=== PATIENT | female | born 1960 | race Caucasian/White ===

== ENCOUNTER 2020-01-03 14:23 | Outpatient (CLI) | payer BC, SELFPAY ==
--- NOTE | 2020-01-03 14:31 | XRR_ITS ---
PROCEDURE INFORMATION: Exam: XR Lumbosacral Spine, 2 or 3 Views Exam date and time: 01/03/2020 2:46 PM Age: 59 years old Clinical indication: Low back pain; Additional info: Lumbar back pain TECHNIQUE: Imaging protocol: XR of the lumbosacral spine, 3 views. Other technique: AP, lateral and spot lateral views of the lumbar spine are submitted. COMPARISON: CR Lumbar Spine 5 views [id number] 06/21/2015 11:30 AM FINDINGS: Vertebrae: Mild anterior L2-L3 and L4-L5 vertebral body marginal osteophytes. Left lateral L4-L5 and L3-L4 vertebral body marginal osteophytes. Soft tissues: Normal. XR/XR lumbar spine 2-3V* [id number] IMPRESSION: No acute lumbar spinal bony abnormality identified.
== END 2020-01-03 14:24 | disposition home or self-care (01) ==
LOC: RAD 14:26
PROVIDERS: Family Provider Family Medicine; PCP Family Medicine; Visit Provider Family Medicine
DX: M54.5 Low back pain (principal)
CPT/HCPCS: 72100

== ENCOUNTER → 2020-04-15 12:42 | Outpatient (BNVA) | payer BC, SELFPAY | PROVIDERS: Family Provider Family Medicine; PCP Family Medicine; Visit Provider Specialist | DX: R51 Headache (principal); M79.7 Fibromyalgia | CPT/HCPCS: 99213 ==

== ENCOUNTER 2021-04-09 13:45 | Outpatient (CLI) | payer OTHER, SELFPAY ==
--- NOTE | 2021-04-09 14:01 | XR_ITS ---
WS: [id number] Thoracic spine, AP and lateral views, 04/09/2021 Clinical Data: THORACIC REGION BACK PAIN Comparison: None. Findings: No compression fractures are seen. The disc heights are normal. The paravertebral regions are normal. XR/XR thoracic spine 3V* [id number] Impression: Negative thoracic spine.
--- NOTE | 2021-04-09 14:01 | XR_ITS ---
WS: [id number] Cervical spine, AP, odontoid, both obliques, lateral with flexion, extension and neutral position, 04/09/2021 Clinical Data: R CERVICAL RADICULOPATHY Comparison: Cervical spine, 11/17/2016. Findings: No compression fractures are seen. There is degenerative disc narrowing at C4-C5, C5-C6 and C6-C7. There is no prevertebral soft tissue swelling. The odontoid is unremarkable. The oblique film s show left foraminal narrowing at C6-C7. On flexion and extension there is no limitation of motion o r subluxation. The soft tissues of the neck and the lung apices are normal. XR/XR cervical spine min 6V [id number] Impression: 1. Mild foraminal encroachment on the left at C6-C7. 2. Degenerative disc narrowing at C4-C5 and C5-C6 and C6-C7. 3. Negative for limitation of motion or subluxation on flexion or extension.
--- NOTE | 2021-04-09 14:01 | XR_ITS ---
WS: [id number] Lumbar spine, 3 views, 04/09/2021. Clinical Data: LUMBAR BACK PAIN Comparison: Lumbar spine, 01/03/2020. Findings: No compression fractures or subluxation is seen. No disc space narrowing is seen. The transverse proc esses and SI joints are normal. There are small osteophytes from L1 through L5. XR/XR lumbar spine 2-3V* [id number] Impression: Minimal osteophytes from L1 through L5.
== END 2021-04-09 13:46 | disposition home or self-care (01) ==
LOC: RAD 13:51
PROVIDERS: PCP Family Medicine; Visit Provider Family Medicine
DX: M54.12 Radiculopathy, cervical region (principal); M54.5 Low back pain; M54.6 Pain in thoracic spine
CPT/HCPCS: 72052; 72072; 72100

== ENCOUNTER 2021-04-15 18:55 | Emergency (ER) | payer OTHER, SELFPAY ==
[2021-04-15 19:27] VITALS: BP 146/92; PULSE 68; RESP 16; TEMP 37.1; O2SAT 96; BMI 40.0
--- NOTE | 2021-04-15 19:41 | W.ED.FEMALGU ---
HPI - Female Genitourinary General: Chief complaint: Urogenital-Female Stated complaint: UTI related pain Time Seen by Provider: 04/15/21 19:33 Source: patient Mode of arrival: ambulatory Limitations: no limitations History of Present Illness: HPI Narrative: 60-year-old female states she gets frequent UTIs and states that over the last day she has been having extreme dysuria and states she feels like she is urinating glass shards. States she also feels a pressure in her bladder and has been having increased frequency. She denies any flank pain denies any fever. Denies any nausea or vomiting. She denies any worsening improving factors. Associated symptoms: Deny abdominal pain, headache(s) or nausea Review of Systems Const: Denies: fever(s), chills, body aches or change in appetite Eyes: Denies: blurry vision or eye discomfort ENMT: Denies: throat pain or dental pain Card: Denies: chest pain Resp: Denies: dyspnea GI: Denies: abdominal pain, nausea, vomiting or diarrhea : Reports: dysuria and urinary frequency Musc: Denies: neck pain or back pain Skin/Breast: Denies: rash Neuro: Denies: headache(s) Psych: Denies: depression Ted/Lymph: Denies: easy bruising All/Imm: Denies: urticaria PFSH ED PFSH: Medical History Atrial arrhythmia Benign essential HTN Fibromyalgia Hyperlipidemia Hypothyroid Non-healing ulcer [place] spotted fever WPW (Ujuqt-Rhzlzqhfr-Xrioj syndrome) History as teenager has occasional palpitations and never had any intervention Surgical History H/O adenoidectomy H/O hysterectomy with oophorectomy History of arthroscopy of right knee Hx of tonsillectomy S/P left knee arthroscopy Family History Sister Clotting disorder Grandmother Diabetes Mother Diabetes Father Cancer Lung disease Brother Cancer Other Hypertension Denies family history of Dementia Suicide Anesthesia complication Bleeding disorder Stroke Social History Smoking and tobacco status: never smoked Alcohol intake: never History of recent travel: No Physical Exam Const: COMMON NORMALS: no acute distress, patient oriented x3 and healthy appearing HENMT: COMMON NORMALS: normocephalic and atraumatic HEAD & SCALP: normocephalic and atraumatic Eye: COMMON NORMALS: Equal, round and reactive pupils present and EOMs intact bilaterally PUPIL: Yes Equal, round and reactive pupils present Neck/C-Spine: COMMON NORMALS: full ROM and supple Chest: COMMONS NORMALS: normal inspection of the chest and normal palpation of entire chest wall Resp: COMMON NORMALS: normal respiratory effort, No retractions, No use of accessory muscles and clear to auscultation bilaterally AUSCULTATION: clear to auscultation bilaterally Cardio: COMMON NORMALS: regular rate, regular rhythm and No murmurs present (Cardio) RATE: regular rate RHYTHM: regular rhythm GI: COMMON NORMALS: Normal to inspection, nondistended, normoactive bowel sounds present, Soft to palpation, non-tender and no masses PALPATION: Yes Soft to palpation Extremity: COMMON NORMALS: normal to inspection and full ROM Neuro: COMMON NORMALS: patient oriented x3, moves all extremities and no focal motor deficits Psych: COMMON NORMALS: mental status grossly normal, Normal thought process present and cooperative THOUGHT PROCESS: Normal thought process present Skin: COMMON NORMALS: no rashes or lesions noted and no wounds GENERAL SKIN EXAM: no rashes or lesions noted Course Vital Signs: Vital signs: Vital Signs Temperature 98.7 F 04/15/21 19:27 Pulse Rate 68 04/15/21 19:27 Respiratory Rate 16 04/15/21 19:27 Blood Pressure 146/92 04/15/21 19:27 Pulse Oximetry 96 04/15/21 19:27 MDM - Female MDM Narrative: Medical decision making narrative: Patient presents here with a urinary tract infection. We will give her Rocephin and Keflex. She has no signs of pyelonephritis. She is stable for discharge return if worsening. Lab Data: Labs: Lab Results 04/15/21 Range/Units 19:26 Urine Color Yellow (Yellow) Urine Appearance Hazy A (CLEAR) Urine pH 5 (5-7) Ur Specific Gravit y 1.020 (1.005-1.030) Urine Protein 2+ H (Negative) Urine Glucose (UA) Norm (Normal) Urine Ketones 1+ H (Negative) Urine Blood 3+ H (Negative) Urine Nitrate Negative (Negative) Urine Bilirubin Neg (Negative) Urine Urobilinogen Norm (Negative) mg/dL Ur Leukocyte Oxana ase 2+ H (Negative) Urine RBC 25-40 H (0-2) /hpf Urine WBC 40-55 H (0-5) /hpf Ur Squamous Epith Cells 0-4 H (0-5) /hpf Amorphous Sediment Not Reportable Urine Bacteria 2+ H (NONE) /hpf Urine Mucus 1+ /hpf Discharge Plan Discharge Patient Disposition: Home Clinical Impression: Urinary tract infection Qualifiers: Urinary tract infection type: acute cystitis Hematuria presence: without hematuria Qualified Code(s): N30.00 - Acute cystitis without hematuria Condition: Stable Prescriptions: New cephalexin 500 mg capsule 500 mg PO TID 7 Days Qty: 21 RF: 0 No Action gabapentin 600 mg tablet 600 mg PO TID Qty: 90 RF: 3 gabapentin 100 mg capsule 100 mg PO TID Qty: 90 RF: 3 ibuprofen 200 mg Tablet 200 mg PO Q6H PRN (Reason: Pain) RF: 0 Centrum Silver Ultra Women's Tablet 1 tab PO DAILY@0900 RF: 0 carvedilol 6.25 mg tablet 6.25 mg PO BID@0900,0000 MDD Twice daily RF: 0 Discharge Orders: Discharge ED (Routine); Ordered 04/15/21 Ordered By: Kelli Mason Referrals: Jorge Villarreal MD [Primary Care Provider] - 1-3 days Discharge Diet: Advance as tolerated Discharge Activity: Resume usual activity Patient Instructions: Urinary Tract Infection in Women (ED) Coding Level of Care Code ED Compugraph Operator for Micky Fwd Exam Comprehensive
[2021-04-15 19:47] LABS: Add Urine Microscopic? YES; Bilirubin Urine Neg (Negative); Blood Urine 3+ (Negative); Glucose Urine UA Norm (Normal); Ketones Urine 1+ (Negative); Leukocyte Esterase Urine 2+ (Negative); Nitrate Urine Negative (Negative); Protein Urine 2+ (Negative); Urine Appearance Hazy (CLEAR); Urine Color Yellow (Yellow); Urobilinogen Urine Norm (Negative); pH Urine 5 (5-7)
[2021-04-15 19:48] LABS: Add Urine Culture? Yes; Bacteria Urine 2+ /hpf; Mucus Urine 1+ /hpf; RBC Urine 25-40 /hpf (0-2); Squamous Epithelial Cell Urine 0-4 /hpf (0-5); WBC Urine 40-55 /hpf (0-5)
[2021-04-15] MEDS: cefTRIAXone 1,000 MG in lidocaine 1% 2.1 ML 2.1 MG IM (20:03)
[2021-04-15 20:07] VITALS: BP 137/74; PULSE 79; RESP 18; O2SAT 97
[2021-04-15 20:43] VITALS: BP 158/69; PULSE 82; RESP 17; TEMP 37.1; O2SAT 97
== END 2021-04-15 20:45 | disposition home or self-care (01) ==
PROVIDERS: Emergency Provider Emergency Medicine; PCP Family Medicine
DX: N30.00 Acute cystitis without hematuria (principal); I10 Essential (primary) hypertension; E78.5 Hyperlipidemia, unspecified; I45.6 Pre-excitation syndrome
CPT/HCPCS: 81001; 87086; 96372; 99283; J0696

== ENCOUNTER → 2021-06-25 13:40 | Outpatient (BNVA) | payer OTHER, SELFPAY | PROVIDERS: PCP Family Medicine; Visit Provider Internal Medicine | DX: M79.7 Fibromyalgia (principal); R53.83 Other fatigue; G89.4 Chronic pain syndrome; Z11.59 Encounter for screening for other viral diseases; Z79.2 Long term (current) use of antibiotics | CPT/HCPCS: 99204 ==

== ENCOUNTER 2021-06-27 09:01 | Outpatient (CLI) | payer OTHER, SELFPAY ==
--- NOTE | 2021-06-27 09:12 | XR_ITS ---
WS: [id number] Right hand, AP and lateral views, 06/27/2021 Clinical Data: G89.4 - Chronic pain syndrome Comparison: None. Findings: No fractures or dislocations are seen. The soft tissues are unremarkable. The joint space s are normal No periarticular demineralization or calcifications are seen. XR/XR hand RT 2V [id number] Impression: Negative right hand.
--- NOTE | 2021-06-27 09:12 | XR_ITS ---
WS: [id number] Left hand, AP and lateral views, 06/27/2021 Clinical Data: G89.4 - Chronic pain syndrome Comparison: Left hand, 09/01/2019. Findings: No fractures or dislocations are seen. The soft tissues are unremarkable. The joint spaces are normal XR/XR hand LT 2V [id number] Impression: Negative left hand.
--- NOTE | 2021-06-27 09:12 | XR_ITS ---
WS: [id number] Sacroiliac joints, 3 views, 06/27/2021 Clinical Data: L40.9 - Psoriasis, unspecified Comparison: None. Findings: The SI joints are normal in width. No erosion, sclerosis or destruction is seen. There are no fractur es or dislocations. The adjacent visualized pelvis and hips are unremarkable. XR/XR sacroiliac jts m 3V [id number] Impression: Negative SI joints.
[2021-06-27 10:28] LABS: C Reactive Protein 2.8 mg/L (0.0-4.9); Ferritin 175 ng/mL (15-150); Iron 80 ug/dL (37-145); Magnesium 2.1 mg/dL (1.7-2.3); Phosphorus 3.5 mg/dL (2.5-4.5); Uric Acid 7.2 mg/dL (2.4-5.7)
[2021-06-27 10:43] LABS: Cortisol Random 12.31 ug/dL (2.47-19.5); Hepatitis B Core AB, Total Non-Reactive (Nonreactive); Hepatitis B Surface Antigen Non-Reactive (Nonreactive); Hepatitis C Virus Antibody Non-Reactive (Nonreactive)
[2021-06-27 12:20] LABS: Erythrocyte Sedimentation Rate 10 mm/hr (0-15)
[2021-06-30 12:57] LABS: THYROID PEROXIDASE ANTIBODIES 1 IU/mL (<9)
[2021-06-30 13:42] LABS: COMPLEMENT COMPONENT C3C 117 mg/dL (83-193); COMPLEMENT COMPONENT C4C 29 mg/dL (15-57)
[2021-06-30 14:18] LABS: ANA SCREEN, IFA NEGATIVE (NEGATIVE)
[2021-06-30 14:42] LABS: Cyclic Citrullinated Peptide <16 UNITS
[2021-06-30 15:38] LABS: CENTROMERE B ANTIBODY <1.0 NEG AI (<1.0 NEG); JO-1 ANTIBODY <1.0 NEG AI (<1.0 NEG); RNP ANTIBODY <1.0 NEG AI (<1.0 NEG); SCL-70 ANTIBODY <1.0 NEG AI (<1.0 NEG); SJOGREN'S ANTIBODY (SS-A) <1.0 NEG AI (<1.0 NEG); SM ANTIBODY <1.0 NEG AI (<1.0 NEG); SS-B <1.0 NEG AI (<1.0 NEG)
[2021-06-30 17:17] LABS: COMPLEMENT, TOTAL (CH50) >60 U/mL (31-60)
[2021-07-01 17:08] LABS: Vitamin B1(Thiamin) Plas/Ser 14 nmol/L (8-30)
[2021-07-02 01:02] LABS: Tissue Transglutaminase IgA Ab <1 U/mL; Tissue transglutaminase Ab.IgG 7 U/mL
[2021-07-02 11:47] LABS: Vitamin B6 Plasma 19.7 ng/mL (2.1-21.7)
[2021-07-02 17:26] LABS: Gliadin Ab.IgA 7 U (<20); Gliadin Ab.IgG 2 U (<20)
[2021-07-03 01:17] LABS: Immunoglobulin A 277 mg/dL (70-320)
[2021-07-04 23:32] LABS: DNA AB (DS) CRITHIDIA,IFA NEGATIVE (NEGATIVE)
== END 2021-06-27 09:02 | disposition home or self-care (01) ==
PROVIDERS: PCP Family Medicine; Visit Provider Internal Medicine
DX: G89.4 Chronic pain syndrome (principal); L40.9 Psoriasis, unspecified; Z11.59 Encounter for screening for other viral diseases
CPT/HCPCS: 36415; 72202; 73120; 82533; 82728; 82784; 83516; 83540; 83735; 84100; 84207; 84425; 84550; 85651; 86140; 86160; 86162; 86235; 86255; 86376; 86704; 86803; 87340

== ENCOUNTER → 2021-07-23 09:28 | Outpatient (BNVA) | payer OTHER, SELFPAY | PROVIDERS: PCP Family Medicine; Visit Provider Internal Medicine | DX: R53.83 Other fatigue (principal); M25.50 Pain in unspecified joint; E53.8 Deficiency of other specified B group vitamins; K90.0 Celiac disease; M48.00 Spinal stenosis, site unspecified; H04.123 Dry eye syndrome of bilateral lacrimal glands | CPT/HCPCS: 99214 ==

== ENCOUNTER 2021-08-12 12:03 | Outpatient (CLI) | payer OTHER, SELFPAY ==
--- NOTE | 2021-08-12 12:08 | MM_ITS ---
WS: [id number] BILATERAL SCREENING DIGITAL MAMMOGRAM WITH CAD HISTORY: SCREENING COMPARISON: 08/30/2015 and 07/19/2014 Bilateral CC and MLO views submitted. Computer aided detection analyzed. Breast composition: There are scattered areas of fibroglandular density. No suspicious masses, microc alcifications or architectural distortion. MM/[place] [id number] IMPRESSION: BI-RADS: 1-Negative FOLLOW UP: 1 Year Follow-up
== END 2021-08-12 12:04 | disposition home or self-care (01) ==
LOC: RADSHAW 12:07
PROVIDERS: PCP Family Medicine; Visit Provider Family Medicine
DX: Z12.31 Encounter for screening mammogram for malignant neoplasm of breast (principal)
CPT/HCPCS: 77067

== ENCOUNTER 2021-09-19 09:27 | Outpatient (CLI) | payer OTHER, SELFPAY ==
--- NOTE | 2021-09-19 09:38 | MR_ITS ---
WS: [id number] MRI of the head and brain without IV contrast, 09/19/2021 Clinical Data: RIGHT FACIAL PARESTHESIA, MIXED HEADACHE Comparison: None. Findings: Ventricular system is normal without shift. No recent infarct or hemorrhage is seen. No abnormal intracerebral mass is present. The cerebellum and brainstem are unremarkable. The carotid arteries show no aneurysms. The regions of nerves VII and VIII and the mastoid air cells are unremarkable. The pituitary, intraorbital contents and paranasal sinuses are normal. No evidence of metastatic disease is seen. MR/MR head wo con* [id number] Impression: Negative MRI of the head and brain.
--- NOTE | 2021-09-19 09:39 | MR_ITS ---
WS: [id number] MRA of the intracerebral circulation, 09/19/2021 Clinical Data: RIGHT FACIAL PARESTHESIA, MIXED HEADACHE Comparison: MRI of the head, 09/19/2021, MRI of the head, 06/07/2018. Findings: The carotid arteries are normal in size with no obstruction or stenoses. The internal carotid arterie s branch normally into the anterior and middle cerebral arteries show no distal abnormalities. The an terior communicating artery is intact and the anterior cerebral arteries show normal proximal and dis maggie flow. No aneurysms are seen. The vertebral arteries show normal flow. The right vertebral artery is larger than left. The [place] is intact. The posterior cerebral arteries branch normally from the basilar artery. The PICA and I cannot arteries show no abnormalities. No aneurysms of the basilar artery are seen. MR/MR angio head wo con [id number] Impression: Negative MRA of the intracerebral circulation.
--- NOTE | 2021-09-19 09:39 | MR_ITS ---
WS: [id number] MRI of the cervical spine, 09/19/2021 Clinical Data: LEFT CERVICAL RADICULOPATHY Comparison: Cervical spine, 04/09/2021. Findings: There is minimal disc space narrowing at C4-C5 and C5-C6. No prevertebral soft tissue swelling is see n. There are no compression fractures. The cervical spinal cord is normal in size with no cysts or ma sses.. C2-C3: No canal stenosis, disc bulge or foraminal narrowing is seen. C3-C4: No canal stenosis, disc bulge or foraminal narrowing is seen. C4-C5: There is a minimal left disc osteophyte causing left foraminal narrowing. C5-C6: There is a minimal left disc osteophyte complex causing left foraminal narrowing. C6-C7: No canal stenosis, disc bulge or foraminal narrowing is seen. C7-T1: No canal stenosis, disc bulge or foraminal narrowing is seen. MR/MR cervical spin wo con* [id number] Impression: 1. Degenerative disc narrowing at C4-C5 and C5-C6. 2. Minimal left disc osteophyte complexes at C4-C5 and C5-C6 causing foraminal narrowing.
== END 2021-09-19 09:28 | disposition home or self-care (01) ==
PROVIDERS: PCP Family Medicine; Visit Provider Family Medicine
DX: R20.2 Paresthesia of skin (principal); G44.89 Other headache syndrome
CPT/HCPCS: 70544; 70551; 72141

== ENCOUNTER → 2021-10-06 11:49 | Outpatient (BNVA) | payer OTHER, SELFPAY | PROVIDERS: PCP Family Medicine; Visit Provider Surgery | DX: Z20.822 Contact with and (suspected) exposure to COVID-19 (principal); Z11.52 Encounter for screening for COVID-19 | CPT/HCPCS: 87635 ==

== ENCOUNTER 2021-10-09 07:35 | Day surgery (SDC) | payer OTHER, SELFPAY ==
[2021-10-06 16:07] VITALS: BMI 41.9
--- NOTE | 2021-10-09 08:12 | P.ANESASSM_ITS ---
Pre-Anesthetic Assessment Pre-Anesthetic Assessment: Height/Weight: Height 1.68 m Weight 117.934 kg Preop Diagnosis: Diagnostic EGD for possible celiac disease. Screening colonoscopy Proposed Procedure: Operation Date: 10/09/21 09:15 Proposed Procedures p EGD/Colon 11753 K90.0(Not Applicable) - Adi Bedoya MD s Colonoscopy 93689 Z86.010(Not Applicable) - Adi Bedoya MD Was Beta Dian taken within 24 hours: Yes Was Clonidine taken within 24 hours: N/A Social: Social History: Alcohol and No tobacco Exam: Pre-Anes Outpt Exam: alert, oriented x 3, clear to auscultation bilaterally and regular rate & rhythm Airway: Submandibular: WNL Cervical ROM: WNL MP: 2 Dentition: Full History/ROS: No significant history except as noted Pulmonary: Pulmonary: None reported CV/HEM: CV/HEM: Afib Comments: Hx of WPW : : None reported Hepatic: Hepatic: None reported GI: GI: GERD Metabolic: Metabolic: Thyroid Comments: Morbid obesity Musc/skel: Musc/skel: None reported Neuropsych: Neuropsych: None reported Anesthetic Plan: ASA status: 2 Anesthesia: Anesthesia Evaluation, General and MAC Risk of > 500 ml blood loss (7ml/kg in children): No PFSH Anesthesia PFSH: Medical History Atrial arrhythmia Benign essential HTN Colon polyps Fibromyalgia Hyperlipidemia Hypothyroid Non-healing ulcer [place] spotted fever WPW (Fewzq-Ggbzcbjpm-Wjxgm syndrome) History as teenager has occasional palpitations and never had any intervention Surgical History H/O adenoidectomy H/O hysterectomy with oophorectomy History of arthroscopy of right knee Hx of cataract extraction Hx of tonsillectomy S/P left knee arthroscopy Status post colonoscopy Family History (Updated 09/15/21 @ 15:20 by Lucie Escalante) Grandmother Diabetes Maternal Mother Diabetes Hypertension Father Cancer Brother Cancer Denies family history of Colon cancer Ovarian cancer Breast cancer Uterine cancer Stroke Social History Alcohol intake: never History of recent travel: No Data Anesthesia Cardiac Studies: No Data to Display
[2021-10-09 08:21] VITALS: BP 127/55; PULSE 52; RESP 18; TEMP 36.1; O2SAT 96
[2021-10-09] MEDS: sodium chloride 0.9% 1,000 ML 30 ML IV (08:39)
--- NOTE | 2021-10-09 09:48 | W.PM.OPSFHP ---
Same Day Surgery H&P Indication for Procedure/HPI DATE OF PROCEDURE: October 09, 2021 CHIEF COMPLAINT/INDICATIONFOR SURGICAL PROCEDURE: colonoscopy PREOP DIAGNOSIS: Anemia PLANNED PROCEDRUE: Operation Date: 10/09/21 09:15 Proposed Procedures p EGD/Colon 23607 K90.0(Not Applicable) - Adi Bedoya MD s Colonoscopy 32190 Z86.010(Not Applicable) - Adi Bedoya MD Medications/Allergies* Home Medications Medication Instructions Recorded Confirmed Type carvedilol 6.25 mg PO BID@0900,0000 MDD Twice 04/15/21 10/09/21 History daily ibuprofen 200 mg PO Q6H PRN 04/15/21 10/09/21 History Lactobacillus acidophilus 2,000 mmu cells PO DAILY 06/25/21 10/09/21 History astragalus root 250 mg capsule 500 mg PO DAILY cap 06/25/21 10/09/21 History multivit with min-folic 1 tab PO DAILY 06/25/21 10/09/21 History acid-lutein 400 mcg-250 mcg chewable tablet ashwagandha root extract 300 mg 1 mg PO DAILY 09/15/21 10/09/21 History capsule cholecalciferol (vitamin D3) 10 10 mcg PO DAILY 09/15/21 10/09/21 History mcg (400 unit) capsule vitamin B comp and C no.3 15 mg-10 1 cap PO DAILY 09/15/21 10/09/21 History mg-50 mg-5 mg-300 mg capsule Allergies/Adverse Reactions Allergy/AdvReac Type Severity Reaction Status Date / Time No Known Allergies Allergy Verified 09/15/21 15:16 Current Medications: Generic Name Dose Route Start Last Admin Trade Name Freq PRN Reason Stop Dose Admin Sodium Chloride 1,000 mls @ 30 mls/hr 10/09/21 08:15 10/09/21 08:39 Sodium Chloride 0.9% IV 30 mls/hr .Q24H ESTEFANY Administration Pertinent History/Comorbid Conditions* Medical History (Updated 09/15/21 @ 19:28 by Ivanna Nichole MD) Atrial arrhythmia Benign essential HTN Colon polyps Fibromyalgia Hyperlipidemia Hypothyroid Non-healing ulcer [place] spotted fever WPW (Evggp-Hlgiofvpi-Uxddi syndrome) History as teenager has occasional palpitations and never had any intervention Surgical History (Updated 09/02/21 @ 14:36 by Adi Bedoya MD) H/O adenoidectomy H/O hysterectomy with oophorectomy History of arthroscopy of right knee Hx of cataract extraction Hx of tonsillectomy S/P left knee arthroscopy Status post colonoscopy Family History (Updated 09/15/21 @ 15:20 by Lucie Escalante) Diabetes Grandmother Maternal Mother Cancer Father Brother Hypertension Mother Denies family history of Colon cancer Ovarian cancer Breast cancer Uterine cancer Stroke Social History Alcohol intake: never History of recent travel: No Pertinent Exam Findings alert, oriented x 3 and regular rate & rhythm Recommendations Surgery/Procedure today Coding Level of Care Code Acute Director Metabolism for Taj Potter
[2021-10-09 10:28] VITALS: BP 137/64; PULSE 71; RESP 18; TEMP 36.1; O2SAT 95
--- NOTE | 2021-10-09 13:20 | ANE.PACU2 ---
Inpatient post-anesthesia follow up: Airway intact: Yes Vital signs: Temperature 97.0 F Pulse Rate 71 Respiratory Rate 18 Blood Pressure 137/64 Pulse Oximetry 95 Oxygen Delivery Me thod Room Air Oxygen Flow Rate Fraction of Inspir ed Oxygen Hydration adequate: Yes Nausea and vomiting: Yes Pain level: 1 Mental status: Baseline
== END 2021-10-09 11:11 | disposition home or self-care (01) ==
PROVIDERS: PCP Family Medicine; Visit Provider Surgery
PROC: 0DJD8ZZ Inspection of Lower Intestinal Tract, Via Natural or Artificial Opening Endoscopic (ICD-10-PCS; CPT 45378; 2021-10-09 09:15)
PROC: 0DJ08ZZ Inspection of Upper Intestinal Tract, Via Natural or Artificial Opening Endoscopic (ICD-10-PCS; CPT 43235; 2021-10-09 09:15)
DX: Z12.11 Encounter for screening for malignant neoplasm of colon (principal); K90.0 Celiac disease; K29.70 Gastritis, unspecified, without bleeding; I48.91 Unspecified atrial fibrillation; I10 Essential (primary) hypertension; E78.5 Hyperlipidemia, unspecified; M79.7 Fibromyalgia; E03.9 Hypothyroidism, unspecified; Z82.49 Family history of ischemic heart disease and other diseases of the circulatory system; Z83.3 Family history of diabetes mellitus
CPT/HCPCS: 43239; 45380; 88305; 96360; 96361; J2704; J7030

== ENCOUNTER → 2022-04-24 10:43 | Outpatient (BNVA) | payer OTHER, SELFPAY | PROVIDERS: PCP Family Medicine; Visit Provider Family Medicine Adult Medicine | DX: R39.9 Unspecified symptoms and signs involving the genitourinary system (principal); N39.0 Urinary tract infection, site not specified | CPT/HCPCS: 81000 ==

== ENCOUNTER → 2022-04-29 15:30 | Outpatient (BNVA) | payer OTHER, SELFPAY | PROVIDERS: PCP Family Medicine; Visit Provider Family Medicine | DX: Z00.00 Encounter for general adult medical examination without abnormal findings (principal); Z51.81 Encounter for therapeutic drug level monitoring; Z79.1 Long term (current) use of non-steroidal anti-inflammatories (NSAID); Z13.220 Encounter for screening for lipoid disorders; E55.9 Vitamin D deficiency, unspecified; Z13.1 Encounter for screening for diabetes mellitus; E03.9 Hypothyroidism, unspecified | CPT/HCPCS: 80053; 80061; 82607; 83036; 84439; 84443; 85025 ==

== ENCOUNTER 2022-06-11 14:45 | Outpatient (CLI) | payer OTHER, SELFPAY ==
--- NOTE | 2022-06-11 14:54 | XR_ITS ---
WS: [email or web address] SCREENING DEXA SCAN [email or web address] CLINICAL INFORMATION: POSTMENOPAUSAL STATUS COMPARISON: None. FINDINGS: The L1-L4 bone mineral density measures 1.025 g/cm2. This corresponds to a T score score of -1.3 and Z score of -1.0. Left femoral neck bone mineral density measures 0.951 g/cm2. This corresponds to a T score of -0.4 an d Z score of -0.2. Right femoral neck bone mineral density measures 0.930 g/cm2. This corresponds to a T score -0.6of an d Z score of -0.3. Mean femoral neck bone mineral density measures 0.940 g/cm2. This corresponds to a T score of -0.5 an d Z score of -0.2. XR/XR DEXA axial skeleton* [id number] IMPRESSION: Osteopenia lumbar spine. Normal bone mineralization femoral necks. Patient's FRAX calculated 10 year probability for major osteoporotic fracture i s 8.7 % and osteoporotic hip fracture is 1.0%.
== END 2022-06-11 14:46 | disposition home or self-care (01) ==
PROVIDERS: PCP Family Medicine; Visit Provider Family Medicine
DX: Z78.0 Asymptomatic menopausal state (principal); M85.80 Other specified disorders of bone density and structure, unspecified site
CPT/HCPCS: 77080

== ENCOUNTER 2022-07-16 15:56 | Outpatient (CLI) | payer OTHER, SELFPAY ==
[2022-07-16 17:26] LABS: Free T4 Free Thyroxine 1.22 ng/dL (0.82-1.77); Thyroid Stimulating Hormone 1.31 uIU/mL (0.27-4.20)
[2022-07-20 14:08] LABS: Thyroglobulin AB <1 IU/mL (< or = 1); Thyroid Peroxidase Antobodies 1 IU/mL (<9)
[2022-07-21 18:38] LABS: TSH Receptor Binding Antibody <1.00 IU/L (< OR = 2.00)
== END 2022-07-16 15:57 | disposition home or self-care (01) ==
LOC: LAB 15:56
PROVIDERS: PCP Family Medicine; Visit Provider Internal Medicine
DX: E04.1 Nontoxic single thyroid nodule (principal); E11.9 Type 2 diabetes mellitus without complications; E78.2 Mixed hyperlipidemia; R94.6 Abnormal results of thyroid function studies
CPT/HCPCS: 36415; 83516; 84439; 84443; 86376; 86800

== ENCOUNTER → 2022-07-17 09:20 | Outpatient (BNVA) | payer OTHER, SELFPAY | PROVIDERS: PCP Family Medicine; Visit Provider Family Medicine | DX: N39.0 Urinary tract infection, site not specified (principal) | CPT/HCPCS: 81000 ==

== ENCOUNTER → 2022-08-04 15:57 | Outpatient (BNVA) | payer OTHER, SELFPAY | PROVIDERS: PCP Family Medicine; Visit Provider Family Medicine | DX: R30.0 Dysuria (principal); N39.0 Urinary tract infection, site not specified | CPT/HCPCS: 81000; 87086 ==

== ENCOUNTER 2022-09-21 13:48 | Outpatient (CLI) | payer OTHER, MEDICAID, SELFPAY ==
--- NOTE | 2022-09-21 | US_ITS ---
WS: [id number] RENAL ULTRASOUND URINARY BLADDER ULTRASOUND HISTORY: Hematuria COMPARISON: None available. TECHNIQUE: 2-D and color Doppler imaging of the kidney submitted. Right kidney: 11.5 cm x 5.2 cm x 4.7 cm. Normal echogenicity with no hydronephrosis or mass. No cortical thinning. Cortex measures 2.0 cm. Left kidney: 11.3 cm x 6.0 cm x 5.5 cm. Normal echogenicity with no hydronephrosis or mass. No cortical thinning. Cortex measures 1.9 cm. Aorta: Normal. Urinary Bladder: Urinary bladder is only minimally distended. No intraluminal filling defect on this examination. US/US renal BI* [id number] IMPRESSION: Normal renal ultrasound. Minimal distention of the urinary bladder.
--- NOTE | 2022-09-21 13:45 | US_ITS ---
WS: [id number] RENAL ULTRASOUND URINARY BLADDER ULTRASOUND HISTORY: Hematuria COMPARISON: None available. TECHNIQUE: 2-D and color Doppler imaging of the kidney submitted. Right kidney: 11.5 cm x 5.2 cm x 4.7 cm. Normal echogenicity with no hydronephrosis or mass. No cortical thinning. Cortex measures 2.0 cm. Left kidney: 11.3 cm x 6.0 cm x 5.5 cm. Normal echogenicity with no hydronephrosis or mass. No cortical thinning. Cortex measures 1.9 cm. Aorta: Normal. Urinary Bladder: Urinary bladder is only minimally distended. No intraluminal filling defect on this examination.
== END 2022-09-21 13:49 | disposition home or self-care (01) ==
PROVIDERS: PCP Family Medicine; Visit Provider Family Medicine
DX: R31.9 Hematuria, unspecified (principal); N32.89 Other specified disorders of bladder
CPT/HCPCS: 76770; 76857

== ENCOUNTER 2022-09-21 13:57 | Outpatient (CLI) | payer OTHER, MEDICAID, SELFPAY ==
--- NOTE | 2022-09-21 14:30 | US_ITS ---
WS: [email or web address] ULTRASOUND THYROID TECHNIQUE: Ultrasound of the thyroid. CLINICAL INFORMATION: Thyroid Nodule COMPARISON: 2016 FINDINGS: Thyroid: Right and left thyroid lobes are normal in size and echotexture. Right thyroid lobe: 4.7 cm x 1.9 cm x 1.4 cm RIGHT mid thyroid nodule measuring 1.5 x 1.2 x 1.2 cm. This appears stable compared to 2016. Left thyroid lobe: 4.0 cm x 2.2 cm x 1.7 cm. Primarily cystic LEFT mid thyroid nodule with a few septations measuring 0.9 x 0.9 x 0.7 cm. Additional cystic LEFT thyroid nodule measuring 1.5 x 0.8 x 0.7 cm with a few septations. Additional solid LEFT mid to inferior thyroid nodule measuring 2.3 x 1.6 x 1.3 cm is echogenic and we ll-circumscribed. This appears stable compared to 2016. Isthmus: 0.3 mm. Cervical lymphadenopathy: None. US/US thyroid [id number] IMPRESSION: 1. Prior FNA of the solid RIGHT mid thyroid nodule and LEFT mid to inferior th yroid nodule. These appear stable since 2016. 2. Two Additional new primarily cystic nodules with a few septations in the LE FT thyroid. Recommend 12 month follow-up.
== END 2022-09-21 13:58 | disposition home or self-care (01) ==
PROVIDERS: PCP Family Medicine; Visit Provider Internal Medicine
DX: E04.1 Nontoxic single thyroid nodule (principal)
CPT/HCPCS: 76536

== ENCOUNTER → 2022-10-07 14:51 | Outpatient (BNVA) | payer OTHER, MEDICAID, SELFPAY | PROVIDERS: PCP Family Medicine; Visit Provider Internal Medicine | DX: E11.9 Type 2 diabetes mellitus without complications (principal); E78.5 Hyperlipidemia, unspecified; E78.2 Mixed hyperlipidemia; E04.1 Nontoxic single thyroid nodule; R94.6 Abnormal results of thyroid function studies | CPT/HCPCS: 36415; 80053; 80061; 82044; 83036 ==

== ENCOUNTER → 2022-11-05 14:29 | Outpatient (BNVA) | payer MEDICAID, SELFPAY | PROVIDERS: PCP Family Medicine; Visit Provider Emergency Medicine | DX: R39.9 Unspecified symptoms and signs involving the genitourinary system (principal); N10 Acute pyelonephritis | CPT/HCPCS: 81000 ==

== ENCOUNTER 2023-01-05 12:29 | Outpatient (CLI) | payer MEDICAID, SELFPAY ==
[2023-01-05 13:30] LABS: Alanine Aminotransferase 23 U/L (0-33); Albumin Level 4.4 g/dL (3.5-5.2); Alkaline Phosphatase 88 U/L (35-105); Anion Gap 14.4 (5-19); Aspartate Amino Transferase 27 U/L (0-32); Blood Urea Nitrogen 12 mg/dL (8-23); Calcium 9.6 mg/dL (8.5-10.5); Carbon Dioxide 26 mmol/L (22-29); Chloride 105 mmol/L (98-107); Chol HDL Ratio 2.84 mg/dL (0.0-4.40); Cholesterol 122 mg/dL (0-200); Globulin 2.8 g/dL (1.3-4.6); Glomerular Filtration Rate 84.2 mL/min (90-130); Glucose 109 mg/dL (65-115); HDL Cholesterol 43 mg/dL (60-100); LDL Cholesterol Calculated 55 mg/dL (50-129); LDL HDL Ratio 1.28 RATIO (0.00-3.22); Osmolality Calculated 292 mOsm/kg (285-295); Potassium 4.4 mmol/L (3.5-5.1); Sodium 141 mmol/L (136-145); Total Bilirubin 0.3 mg/dL (0.15-1.2); Total Protein 7.2 g/dL (6.6-8.7); Triglycerides 118 mg/dL (0-150)
[2023-01-05 13:33] LABS: Creatinine Urine, Random 56 mg/dL (28-217); Microalbum Creatinine Ratio Ur 18 mg/dL (0-20); Microalbumin Random Urine 1 ug/dL (0-20)
[2023-01-05 13:49] LABS: Estmated Average Glucose 94; Hemoglobin A1C 4.9 % (4.0-6.0)
== END 2023-01-05 12:30 | disposition home or self-care (01) ==
PROVIDERS: PCP Family Medicine; Visit Provider Internal Medicine
DX: E11.9 Type 2 diabetes mellitus without complications (principal); E78.5 Hyperlipidemia, unspecified
CPT/HCPCS: 36415; 80053; 80061; 82044; 83036

== ENCOUNTER → 2023-01-26 17:44 | Outpatient (BNVA) | payer MEDICAID, SELFPAY | PROVIDERS: PCP Family Medicine; Visit Provider Registered Nurse Neonatal Intensive Care | DX: N39.0 Urinary tract infection, site not specified (principal); R30.0 Dysuria | CPT/HCPCS: 81000; 87086 ==

== ENCOUNTER 2023-02-01 09:36 | Outpatient (CLI) | payer MEDICAID, SELFPAY ==
--- NOTE | 2023-02-01 09:30 | MR_ITS ---
WS: [email or web address] MRI LUMBAR SPINE NONCONTRAST TECHNIQUE: Sagittal T1, T2 and STIR imaging. Axial T1 and T2 imaging. CLINICAL INFORMATION: M54.16 - Radiculopathy, lumbar region COMPARISON: MRI 2016 FINDINGS: Mild lumbar curve. No acute compression. No high-grade central canal stenosis. L1-L2: Mild annular bulging. Mild facet arthropathy. Spinal canal and foramen are patent. L2-L3: Mild annular bulging. Moderate facet arthropathy. Mild LEFT and no significant RIGHT foraminal narrowing. Mild central canal stenosis. L3-L4: Mild annular bulging. Slight narrowing of the subarticular recess bilaterally. Mild central ca nal stenosis. Moderate facet arthropathy. Mild RIGHT greater than LEFT foraminal narrowing. L4-L5: Mild annular bulging. Narrowing of the subarticular recess bilaterally. Moderate facet arthrop athy. Mild bilateral foraminal narrowing. L5-S1: Mild annular bulging with slight impingement on the LEFT S1 nerve root. Moderate facet arthrop athy. Mild LEFT foraminal narrowing. Visualized pelvic bony structures: Normal. Paravertebral soft tissues: Normal. MR/MR lumbar spine wo con* [id number] IMPRESSION: 1. Mild central canal stenosis L2-L3 L3-L4 worse at L3-L4 progressed compared to previous. 2. Mild annular bulging L4-L5 with impingement on the traversing L5 nerve root s bilaterally. This appears progressed. 3. Disc bulging L5-S1 impinges the LEFT S1 nerve root progressed compared to p revious. 4. Mild to moderate foraminal narrowing worse at RIGHT L3-L4, RIGHT L4-L5 and LEFT L5-S1.
== END 2023-02-01 09:37 | disposition home or self-care (01) ==
LOC: RAD 09:43
PROVIDERS: PCP Family Medicine; Visit Provider Anesthesiology Pain Medicine
DX: M54.16 Radiculopathy, lumbar region (principal); M48.061 Spinal stenosis, lumbar region without neurogenic claudication; M51.27 Other intervertebral disc displacement, lumbosacral region; M48.07 Spinal stenosis, lumbosacral region
CPT/HCPCS: 72148

== ENCOUNTER 2023-02-10 13:58 | Outpatient (CLI) | payer MEDICAID, SELFPAY ==
--- NOTE | 2023-02-10 13:30 | USCV_ITS ---
Adriana Alex Age: 62 Gender: F : 1960 Exam Date: 02/10/2023 14:50 Ordering Phys: Jorge Villarreal MD Technologist: ANJELICA Exam Location: [facility] – [place] Indication: LLE PAIN HISTORY: Lower extremity pain. PROCEDURES: Venous duplex imaging was performed in only the left lower extremity. The following venous structures were evaluated: common femoral vein, profunda vein, proximal portion of the greater saphenous vein, superficial femoral vein, and the popliteal vein. In addition, the posterior tibial and peroneal trunk were evaluated. Serial compression, augmentation maneuvers, and spectral Doppler flow evaluation were performed. FINDINGS: Normal 2-D Doppler and augmentation and compressibility throughout the lower extremity venous structures. Additional imaging through the proximal calf veins also reveals no thrombus. Limited evaluation of the greater saphenous vein is patent with no thrombus. CONCLUSIONS No DVT left lower extremity. Dr. Nikkie Mota DO (Electronically Signed) Final Date: 10 February 2023 15:17 S
== END 2023-02-10 13:59 | disposition home or self-care (01) ==
LOC: RAD 14:00
PROVIDERS: PCP Family Medicine; Visit Provider Family Medicine
DX: M79.662 Pain in left lower leg (principal); M79.89 Other specified soft tissue disorders
CPT/HCPCS: 93971

== ENCOUNTER → 2023-02-23 09:33 | Outpatient (BNVA) | payer MEDICAID, SELFPAY | PROVIDERS: PCP Family Medicine; Visit Provider Anesthesiology Pain Medicine | DX: M79.18 Myalgia, other site (principal); R10.2 Pelvic and perineal pain; M25.559 Pain in unspecified hip | CPT/HCPCS: 73521 ==

== ENCOUNTER 2023-04-02 13:10 | Outpatient (CLI) | payer MEDICAID, SELFPAY ==
[2023-04-02 13:47] LABS: Alanine Aminotransferase 23 U/L (0-33); Albumin Level 4.1 g/dL (3.5-5.2); Alkaline Phosphatase 80 U/L (35-105); Anion Gap 16.5 (5-19); Aspartate Amino Transferase 22 U/L (0-32); Blood Urea Nitrogen 15 mg/dL (8-23); Calcium 9.3 mg/dL (8.5-10.5); Carbon Dioxide 23 mmol/L (22-29); Chloride 103 mmol/L (98-107); Chol HDL Ratio 4.56 mg/dL (0.0-4.40); Cholesterol 178 mg/dL (0-200); Globulin 2.7 g/dL (1.3-4.6); Glomerular Filtration Rate 84.2 mL/min (90-130); Glucose 209 mg/dL (65-115); HDL Cholesterol 39 mg/dL (60-100); LDL Cholesterol Calculated 98 mg/dL (50-129); LDL HDL Ratio 2.51 RATIO (0.00-3.22); Osmolality Calculated 293 mOsm/kg (285-295); Potassium 4.5 mmol/L (3.5-5.1); Sodium 138 mmol/L (136-145); Total Bilirubin 0.5 mg/dL (0.15-1.2); Total Protein 6.8 g/dL (6.6-8.7); Triglycerides 203 mg/dL (0-150)
[2023-04-02 13:55] LABS: Estmated Average Glucose 108; Hemoglobin A1C 5.4 % (4.0-6.0)
[2023-04-02 14:31] LABS: Creatinine Urine, Random 33 mg/dL (28-217); Microalbum Creatinine Ratio Ur 30 mg/dL (0-20); Microalbumin Random Urine 1 ug/dL (0-20)
== END 2023-04-02 13:11 | disposition home or self-care (01) ==
LOC: LAB 13:12
PROVIDERS: PCP Family Medicine; Visit Provider Internal Medicine
DX: E11.9 Type 2 diabetes mellitus without complications (principal); E78.5 Hyperlipidemia, unspecified; E04.1 Nontoxic single thyroid nodule; R94.6 Abnormal results of thyroid function studies
CPT/HCPCS: 36415; 80053; 80061; 82044; 83036

== ENCOUNTER → 2023-04-03 12:00 | Outpatient (BNVA) | payer MEDICAID, SELFPAY | PROVIDERS: PCP Family Medicine; Visit Provider Registered Nurse Neonatal Intensive Care | DX: R30.0 Dysuria (principal) | CPT/HCPCS: 81000; 87077; 87086; 87184 ==

== ENCOUNTER → 2023-05-20 09:21 | Outpatient (BNVA) | payer MEDICARE, MEDICAID, SELFPAY | PROVIDERS: PCP Family Medicine; Visit Provider Anesthesiology Pain Medicine | DX: M47.816 Spondylosis without myelopathy or radiculopathy, lumbar region (principal) | CPT/HCPCS: 99214 ==

== ENCOUNTER → 2023-05-24 10:02 | Outpatient (BNVA) | payer MEDICARE, MEDICAID, SELFPAY | PROVIDERS: PCP Family Medicine; Visit Provider Anesthesiology Pain Medicine | DX: M47.816 Spondylosis without myelopathy or radiculopathy, lumbar region (principal); M79.18 Myalgia, other site | CPT/HCPCS: 20553; 99214; J1030; J3490 ==

== ENCOUNTER → 2023-07-06 15:41 | Outpatient (BNVA) | payer MEDICARE, MEDICAID, SELFPAY | PROVIDERS: PCP Family Medicine; Visit Provider Dermatology | DX: L60.8 Other nail disorders (principal); D23.72 Other benign neoplasm of skin of left lower limb, including hip; L65.0 Telogen effluvium; L91.8 Other hypertrophic disorders of the skin; L82.1 Other seborrheic keratosis; L81.4 Other melanin hyperpigmentation; I83.12 Varicose veins of left lower extremity with inflammation | CPT/HCPCS: 11200; 99213 ==

== ENCOUNTER → 2023-08-24 10:10 | Outpatient (BNVA) | payer MEDICARE, MEDICAID, SELFPAY | PROVIDERS: PCP Family Medicine; Visit Provider Anesthesiology Pain Medicine | DX: M79.18 Myalgia, other site (principal); M54.9 Dorsalgia, unspecified | CPT/HCPCS: 20553; 99213; J1030; J3490 ==

== ENCOUNTER 2023-09-08 11:05 | Outpatient (CLI) | payer MEDICARE, MEDICAID, SELFPAY ==
--- NOTE | 2023-09-08 11:15 | US_ITS ---
WS: [email or web address] THYROID ULTRASOUND HISTORY: nodule COMPARISON: 09/21/2022, 03/30/2016 Right lobe: 1.8 cm x 1.7 cm x 4.1 cm (w x ap x l). Volume: 6.7 cm3. Very mildly enlarged heterogeneous thyroid. Dominant nodule in the mid gland measures 1.6 x 1.1 x 1.4 cm. There is peripheral calcification with shadowing. This is a hypoechoic mass contained within the thyroid. Mild increased vascularity. Left lobe: 2.1 cm x 1.4 cm x 3.8 cm (w x ap x l). Volume: 6.0 cm3. Normal sized gland. Heterogeneous gland with a few cystic nodules and solid nodules. The largest nodu le is in the lower pole measuring 2.1 x 1.6 x 1.5 cm. There is an additional cystic nodule with septa tions in the mid gland. Central debris or mural nodule within this cyst. This cystic nodule measures 1.0 x 1.1 x 1.1 cm. Isthmus: 0.3 cm. IMPRESSION: 1. Patient has known bilateral thyroid nodules. Some of these nodules have been previously biopsied. The largest nodule in the RIGHT thyroid very similar in size and appearance to 03/30/2016. 2. Cystic and solid nodules in the LEFT thyroid reidentified without change since 09/21/2022. Recomme nd continued close follow-up by ultrasound. These nodules remain suspicious but biopsy has been perfo rmed in the past.
== END 2023-09-08 11:06 | disposition home or self-care (01) ==
PROVIDERS: PCP Family Medicine; Visit Provider Internal Medicine
DX: E04.2 Nontoxic multinodular goiter (principal); R94.6 Abnormal results of thyroid function studies
CPT/HCPCS: 76536

== ENCOUNTER → 2023-10-04 11:49 | Outpatient (BNVA) | payer MEDICARE, MEDICAID, SELFPAY | PROVIDERS: PCP Family Medicine; Visit Provider Family Medicine | DX: Z51.81 Encounter for therapeutic drug level monitoring (principal); E55.9 Vitamin D deficiency, unspecified; E03.9 Hypothyroidism, unspecified; E11.9 Type 2 diabetes mellitus without complications; A04.8 Other specified bacterial intestinal infections; M79.674 Pain in right toe(s); Z13.220 Encounter for screening for lipoid disorders; Z79.899 Other long term (current) drug therapy | CPT/HCPCS: 80053; 80061; 82306; 83036; 84439; 84443; 85025 ==

== ENCOUNTER → 2023-11-11 09:58 | Outpatient (BNVA) | payer MEDICARE, MEDICAID, SELFPAY | PROVIDERS: PCP Family Medicine; Visit Provider Dermatology | DX: D48.5 Neoplasm of uncertain behavior of skin (principal); Z85.828 Personal history of other malignant neoplasm of skin; L57.0 Actinic keratosis; L82.1 Other seborrheic keratosis; I83.12 Varicose veins of left lower extremity with inflammation | CPT/HCPCS: 17000; 99213 ==

== ENCOUNTER 2023-11-12 14:59 | Outpatient (CLI) | payer MEDICARE, MEDICAID, SELFPAY ==
[2023-11-12 16:41] LABS: Creatinine Urine, Random 68 mg/dL (28-217); Microalbum Creatinine Ratio Ur 15 mg/dL (0-20); Microalbumin Random Urine 1 ug/dL (0-20)
[2023-11-12 17:31] LABS: Alanine Aminotransferase 21 U/L (0-33); Albumin Level 4.3 g/dL (3.5-5.2); Alkaline Phosphatase 80 U/L (35-105); Anion Gap 15.2 (5-19); Aspartate Amino Transferase 22 U/L (0-32); Blood Urea Nitrogen 17 mg/dL (8-23); Calcium 9.5 mg/dL (8.5-10.5); Carbon Dioxide 26 mmol/L (22-29); Chloride 103 mmol/L (98-107); Free T4 Free Thyroxine 1.24 ng/dL (0.82-1.77); Glucose 111 mg/dL (65-115); Osmolality Calculated 292 mOsm/kg (285-295); Potassium 4.2 mmol/L (3.5-5.1); Sodium 140 mmol/L (136-145); Thyroid Stimulating Hormone 0.93 uIU/mL (0.27-4.20); Total Bilirubin 0.3 mg/dL (0.15-1.2); Total Protein 7.3 g/dL (6.6-8.7)
[2023-11-15 11:25] LABS: Thyroid Peroxidase Antobodies 1 IU/mL (<9)
[2023-11-15 16:29] LABS: Thyroglobulin AB <1 IU/mL (< or = 1)
== END 2023-11-12 15:00 | disposition home or self-care (01) ==
LOC: LAB 15:02
PROVIDERS: PCP Family Medicine; Visit Provider Internal Medicine
DX: E11.9 Type 2 diabetes mellitus without complications (principal); E78.5 Hyperlipidemia, unspecified; R94.6 Abnormal results of thyroid function studies
CPT/HCPCS: 36415; 80053; 82044; 84439; 84443; 86376; 86800

== ENCOUNTER → 2023-11-18 11:12 | Outpatient (BNVA) | payer MEDICARE, MEDICAID, SELFPAY | PROVIDERS: PCP Family Medicine; Visit Provider Internal Medicine | DX: G89.4 Chronic pain syndrome (principal); G62.9 Polyneuropathy, unspecified; R53.83 Other fatigue; E04.1 Nontoxic single thyroid nodule; E11.9 Type 2 diabetes mellitus without complications; E78.2 Mixed hyperlipidemia; R94.6 Abnormal results of thyroid function studies; R10.9 Unspecified abdominal pain; R53.1 Weakness; Z79.84 Long term (current) use of oral hypoglycemic drugs | CPT/HCPCS: 36415; 83690; 99214 ==

== ENCOUNTER → 2023-11-24 10:53 | Outpatient (BNVA) | payer MEDICARE, MEDICAID, SELFPAY | PROVIDERS: PCP Family Medicine; Visit Provider Anesthesiology Pain Medicine | DX: M79.18 Myalgia, other site (principal); M54.9 Dorsalgia, unspecified | CPT/HCPCS: 20553; 99214; J1030; J3490 ==

== ENCOUNTER → 2023-11-25 11:35 | Outpatient (BNVA) | payer MEDICARE, MEDICAID, SELFPAY | PROVIDERS: PCP Family Medicine; Visit Provider Dermatology | DX: B07.8 Other viral warts (principal) | CPT/HCPCS: 17110 ==

== ENCOUNTER → 2023-12-20 10:03 | Outpatient (BNVA) | payer MEDICARE, MEDICAID, SELFPAY | PROVIDERS: PCP Family Medicine; Referring Provider Internal Medicine; Visit Provider Psychiatry & Neurology Neurology | DX: G44.53 Primary thunderclap headache (principal); R26.89 Other abnormalities of gait and mobility; M48.061 Spinal stenosis, lumbar region without neurogenic claudication; M54.2 Cervicalgia; R20.2 Paresthesia of skin; M79.601 Pain in right arm; M79.602 Pain in left arm; R29.818 Other symptoms and signs involving the nervous system; R42 Dizziness and giddiness; R47.89 Other speech disturbances; R29.898 Other symptoms and signs involving the musculoskeletal system | CPT/HCPCS: 99203 ==

== ENCOUNTER 2024-01-13 06:40 | Outpatient (CLI) | payer MEDICARE, MEDICAID, SELFPAY ==
--- NOTE | 2024-01-13 07:00 | MR_ITS ---
WS: [email or web address] MRA ANGIOGRAPHY [place]IBO[place] AND [place] HISTORY: R51.9 - Headache, unspecified COMPARISON: 09/19/2021 TECHNIQUE: 3-D MR angiography is performed of the [place]. All images are reviewed including source images. Small caliber distal LEFT vertebral artery but it is patent. RIGHT vertebral artery is normal. Normal basilar artery. Posterior cerebral and posterior communicating arteries are patent. No thrombus or s tenosis. Intracranial portion of the internal carotid arteries are normal course and caliber. No significant a therosclerosis, stenosis or aneurysm identified. Middle and anterior cerebral arteries are both paten t with no significant disease. Anterior communicating artery is also normal. IMPRESSION: Normal MRA [place].
== END 2024-01-13 06:41 | disposition home or self-care (01) ==
LOC: RAD 06:40
PROVIDERS: PCP Family Medicine; Visit Provider Psychiatry & Neurology Neurology
DX: R51.9 Headache, unspecified (principal); R26.89 Other abnormalities of gait and mobility
CPT/HCPCS: 70544

== ENCOUNTER 2024-01-13 06:41 | Outpatient (CLI) | payer MEDICARE, MEDICAID, SELFPAY ==
--- NOTE | 2024-01-13 07:15 | MR_ITS ---
WS: [email or web address] MRI BRAIN WITH AND WITHOUT CONTRAST HISTORY: R51.9 - Headache, unspecified COMPARISON: Noncontrast MRI 09/19/2021 TECHNIQUE: Multiplanar imaging performed through the brain with MultiHance 20 ml's IV. There is a single area of increased signal on the diffusion imaging in the posterior RIGHT parietal c ortex which is probably an artifact. No corresponding finding on the ADC map or FLAIR sequences. No i nfarct. No significant volume loss. There is very mild small vessel ischemic disease throughout the white matter. Ventricles and extra-axial spaces are normal. Clivus and pituitary gland are normal. Visualized posterior fossa and brainstem are also normal. Postcontrast images are negative for masses or vascular malformations. Dural venous sinuses are normal. Paranasal sinuses: Well aerated with no significant disease. Mastoid air cells: Normal. Calvarium and scalp: Normal. IMPRESSION: 1. No demyelinating lesions or abnormal enhancement within the brain. 2. Very mild small vessel ischemic disease. No acute infarct. 3. Normal hippocampal formations.
--- NOTE | 2024-01-13 08:00 | MR_ITS ---
WS: [email or web address] MRI CERVICAL SPINE with and without contrast HISTORY: R51.9 - Headache, unspecified COMPARISON: 09/19/2021 Technique: Multiplanar, multisequence noncontrast imaging of the cervical spine. Postcontrast imaging , MultiHance 20 mL IV. Quality of this examination is compromised by body habitus. Posterior alignment appears normal. Small osteophytes and disc space narrowing at all levels. Signal within the cervical cord is normal. Visualized posterior fossa is unremarkable. Craniocervical junction, C1 and C2 relationship, odontoid process and soft tissues are normal. C2-C3: Normal. C3-C4: Annular disc bulging and osteophytosis encroaching upon the ventral thecal sac. Moderate centr al and LEFT foraminal stenosis. Mild RIGHT foraminal stenosis. C4-C5: Osteophytic ridging and central disc protrusion. Mild central and bilateral foraminal stenosis . C5-C6: Osteophytic ridging and disc bulging. Moderate central and mild bilateral foraminal stenosis a nd mild facet arthritis. Slightly greater LEFT foraminal stenosis. C6-C7: Diffuse osteophytic ridging and disc bulging with mild foraminal stenosis. C7-T1: Tiny central disc protrusion. No stenosis. Paravertebral soft tissues are normal. Postcontrast imaging negative. No evidence for discitis or osteomyelitis. No enhancing cord lesions. IMPRESSION: 1. Quality of this examination is compromised by body habitus. 2. No enhancing lesions or T2 signal abnormality within the cervical cord. 3. C3-4: Moderate central LEFT foraminal stenosis due to disc and osteophyte disease. Similar to the prior study. 4. C4-5: Mild central and bilateral foraminal stenosis. No change. 5. C5-6: Moderate central and bilateral foraminal stenosis, LEFT greater than RIGHT.
== END 2024-01-13 06:42 | disposition home or self-care (01) ==
LOC: RAD 06:41
PROVIDERS: PCP Family Medicine; Visit Provider Psychiatry & Neurology Neurology
DX: R51.9 Headache, unspecified (principal); R26.89 Other abnormalities of gait and mobility
CPT/HCPCS: 70553; 72156; A9577

== ENCOUNTER → 2024-02-01 11:08 | Outpatient (BNVA) | payer MEDICARE, MEDICAID, SELFPAY | PROVIDERS: PCP Family Medicine; Visit Provider Orthopaedic Surgery | DX: M54.2 Cervicalgia (principal); M47.22 Other spondylosis with radiculopathy, cervical region | CPT/HCPCS: 72050; 99204 ==

== ENCOUNTER → 2024-02-23 10:01 | Outpatient (BNVA) | payer MEDICARE, MEDICAID, SELFPAY | PROVIDERS: PCP Family Medicine; Visit Provider Anesthesiology Pain Medicine | DX: M79.18 Myalgia, other site (principal); M54.50 Low back pain, unspecified | CPT/HCPCS: 20553; 99214 ==

== ENCOUNTER → 2024-02-24 11:21 | Outpatient (BNVA) | payer MEDICARE, MEDICAID, SELFPAY | PROVIDERS: PCP Family Medicine; Visit Provider Dermatology | DX: Z08 Encounter for follow-up examination after completed treatment for malignant neoplasm (principal); D48.5 Neoplasm of uncertain behavior of skin; B07.8 Other viral warts | CPT/HCPCS: 99213 ==

== ENCOUNTER → 2024-03-08 14:18 | Outpatient (BNVA) | payer MEDICARE, MEDICAID, SELFPAY | PROVIDERS: PCP Family Medicine; Visit Provider Anesthesiology Pain Medicine | DX: M47.816 Spondylosis without myelopathy or radiculopathy, lumbar region (principal) | CPT/HCPCS: 64635; 64636; J1010 ==

== ENCOUNTER → 2024-03-13 12:49 | Outpatient (BNVA) | payer MEDICARE, MEDICAID, SELFPAY | PROVIDERS: PCP Family Medicine; Visit Provider Psychiatry & Neurology Neurology | DX: G44.53 Primary thunderclap headache (principal); M48.00 Spinal stenosis, site unspecified; R47.89 Other speech disturbances; M54.2 Cervicalgia; R20.2 Paresthesia of skin; R29.898 Other symptoms and signs involving the musculoskeletal system; R29.818 Other symptoms and signs involving the nervous system; R42 Dizziness and giddiness; I10 Essential (primary) hypertension; E11.9 Type 2 diabetes mellitus without complications; E78.5 Hyperlipidemia, unspecified; R94.6 Abnormal results of thyroid function studies; R29.90 Unspecified symptoms and signs involving the nervous system; M79.601 Pain in right arm; M79.602 Pain in left arm | CPT/HCPCS: 36415; 80061; 82525; 82607; 83036; 83090; 83735; 83921; 84155; 84165; 84207; 84425; 86334; 86592; 86617; 99212 ==

== ENCOUNTER → 2024-03-16 10:56 | Outpatient (BNVA) | payer MEDICARE, MEDICAID, SELFPAY | PROVIDERS: PCP Family Medicine; Visit Provider Internal Medicine | DX: E11.9 Type 2 diabetes mellitus without complications (principal); E78.2 Mixed hyperlipidemia; E04.1 Nontoxic single thyroid nodule | CPT/HCPCS: 99213; 99214 ==

== ENCOUNTER → 2024-03-22 12:34 | Outpatient (BNVA) | payer MEDICARE, MEDICAID, SELFPAY | PROVIDERS: PCP Family Medicine; Visit Provider Anesthesiology Pain Medicine | DX: M47.816 Spondylosis without myelopathy or radiculopathy, lumbar region (principal) | CPT/HCPCS: 64635; 64636; J1010 ==

== ENCOUNTER → 2024-04-10 08:48 | Outpatient (BNVA) | payer MEDICARE, MEDICAID, SELFPAY | PROVIDERS: PCP Family Medicine; Visit Provider Anesthesiology Pain Medicine | DX: M54.50 Low back pain, unspecified | CPT/HCPCS: 99214 ==

== ENCOUNTER 2024-04-19 13:23 | Outpatient (CLI) | payer MEDICARE, MEDICAID, SELFPAY ==
[2024-04-19 13:56] LABS: Basophils # 0.1 10^3/uL (0.0-0.1); Basophils % 0.8 %; Eosinophils # 0.1 10^3/uL (0.0-0.8); Eosinophils % 1.8 %; Hematocrit 39.7 % (36-47); Lymphocytes % 40.5 %; Mean Corpuscular HGB Conc 32.7 g/dL (30-55); Mean Corpuscular Hemoglobin 31.6 pg (27-33); Mean Corpuscular Volume 96.4 fl (85-98); Mean Platelet Volume 9.8 fL (7.4-10.4); Monocytes # 0.6 10^3/uL (0.2-0.9); Monocytes % 7.8 %; Neutrophils % 48.7 %; Nucleated Red Blood Cells % 0 %; Platelet Count 275 10^3/cmm (157-399); Red Blood Count 4.12 10^6/uL (3.85-5.65); Red Cell Distribution Width 12.5 % (12.1-15.1); White Blood Count 7.39 10^3/uL (3.29-11.43)
[2024-04-19 14:24] LABS: Alanine Aminotransferase 19 U/L (0-33); Albumin Level 4.2 g/dL (3.5-5.2); Alkaline Phosphatase 90 U/L (35-105); Anion Gap 18.2 (5-19); Aspartate Amino Transferase 20 U/L (0-32); Blood Urea Nitrogen 20 mg/dL (8-23); Calcium 9.6 mg/dL (8.5-10.5); Carbon Dioxide 24 mmol/L (22-29); Chloride 102 mmol/L (98-107); Globulin 2.8 g/dL (1.3-4.6); Glucose 130 mg/dL (65-115); Osmolality Calculated 294 mOsm/kg (285-295); Potassium 4.2 mmol/L (3.5-5.1); Sodium 140 mmol/L (136-145); Total Bilirubin 0.3 mg/dL (0.15-1.2)
[2024-04-19 14:28] LABS: Bacteria Urine TRACE /hpf; Bilirubin Urine Neg (Negative); Blood Urine Neg (Negative); Calcium Oxalate Crystals Urine 25-40 /hpf; Glucose Urine UA Norm (Normal); Ketones Urine Negative (Negative); Leukocyte Esterase Urine Negative (Negative); Nitrate Urine Negative (Negative); Protein Urine Neg (Negative); Squamous Epithelial Cell Urine RARE /hpf (0-5); Urine Appearance Slightly Cloudy (CLEAR); Urine Color Yellow (Yellow); Urobilinogen Urine Norm (Negative); pH Urine 5 (5-7)
[2024-04-19 14:37] LABS: Erythrocyte Sedimentation Rate 11 mm/hr (0-15)
[2024-04-20 08:50] LABS: Treponema pallidum AB Immuno NEGATIVE (NEGATIVE)
== END 2024-04-19 13:24 | disposition home or self-care (01) ==
LOC: LAB 13:23
PROVIDERS: PCP Family Medicine; Visit Provider Specialist
DX: R42 Dizziness and giddiness (principal)
CPT/HCPCS: 36415; 80053; 81001; 85025; 85651; 86780

== ENCOUNTER → 2024-05-15 13:28 | Outpatient (BNVA) | payer MEDICARE, MEDICAID, SELFPAY | PROVIDERS: PCP Family Medicine; Visit Provider Nurse Practitioner Family | DX: R39.9 Unspecified symptoms and signs involving the genitourinary system (principal); R30.0 Dysuria | CPT/HCPCS: 81000; 87077; 87086; 87184 ==

== ENCOUNTER 2024-07-27 06:00 | Outpatient (CLI) | payer MEDICARE, MEDICAID, SELFPAY | END 2024-07-27 06:01 | disposition home or self-care (01) | LOC: RAD 08-11 11:37 | PROVIDERS: PCP Family Medicine; Visit Provider Psychiatry & Neurology Neurology | DX: K90.0 Celiac disease (principal); G44.53 Primary thunderclap headache; R29.818 Other symptoms and signs involving the nervous system; R47.89 Other speech disturbances; M54.2 Cervicalgia; R42 Dizziness and giddiness; R20.2 Paresthesia of skin; M79.601 Pain in right arm; M79.602 Pain in left arm; R29.898 Other symptoms and signs involving the musculoskeletal system; M47.22 Other spondylosis with radiculopathy, cervical region; E11.9 Type 2 diabetes mellitus without complications; M48.00 Spinal stenosis, site unspecified | CPT/HCPCS: 36415; 82306; 82746; 84207 ==

== ENCOUNTER → 2024-08-28 10:30 | Outpatient (BNVA) | payer MEDICARE, MEDICAID, SELFPAY | PROVIDERS: PCP Family Medicine; Visit Provider Podiatrist Foot & Ankle Surgery | DX: G62.9 Polyneuropathy, unspecified (principal); B35.1 Tinea unguium; E11.42 Type 2 diabetes mellitus with diabetic polyneuropathy | CPT/HCPCS: 99213 ==

== ENCOUNTER 2024-08-29 11:15 | Outpatient (CLI) | payer MEDICARE, MEDICAID, SELFPAY ==
--- NOTE | 2024-08-29 11:15 | USR_ITS ---
PROCEDURE INFORMATION: Exam: US Soft Tissue Head and Neck, Thyroid Exam date and time: 08/29/2024 11:36 AM Age: 64 years old Clinical indication: Condition or disease; Thyroid disorder; Other: Thyroid nodule; Additional info: Thyroid nodule, include tirads TECHNIQUE: Imaging protocol: Real-time ultrasound scan of the neck with image documentation. Exam focused on the thyroid. COMPARISON: [place] thyroid [id number] 09/08/2023 11:10 AM FINDINGS: Right thyroid lobe: The right lobe of the thyroid measures 1.4 x 1.5 x 3.9 cm. There is a solid nodule in the mid right lobe of the thyroid measuring 0.9 x 0.9 x 1.3 cm. This measures slightly smaller than before but I believe that this is most likely due to differences in caliber placement than true change. It appears solid and hypoechoic with a calcified rim. This is a TI-RADS 4 lesion Left thyroid lobe: The left lobe of the thyroid measures 1.4 x 1.6 x 4.1 cm. There is a mixed cystic and solid lesion in the mid left lobe measuring 1.3 x 1.1 x 1.3 cm . This does not appear significantly changed. This is a TI-RADS 1 lesion. There is a lobular solid lesion in the lower pole of the left lobe measuring 1.5 x 2.1 x 2.1 cm.. This measures slightly larger than before but again this is most likely due to differences in caliber placement rather than true change. This is a TI-RADS 4 lesion. There is a predominantly cystic lesion in the lower pole of the left lobe which appears slightly smaller than before, measuring 0.9 x 0.7 x 1.8 cm. This is a TI-RADS 0 lesion Isthmus: The thyroid isthmus measures 3.0 mm US/US thyroid [id number] IMPRESSION: 1. Worrisome solid lesion right lobe of the thyroid with a calcified rim which is a TI-RADS 4 lesion. If this is not previously been biopsied or if it was biopsied and pathology not conclusive, recommend re-biopsy this even though it has not changed significantly 2. Worrisome solid lesion lower pole left lobe which is also a TI-RADS 4 lesion. Again if this has not already been biopsied or if pathology was inconclusive, recommend that this lesion be re-biopsssssied 3. Continued ultrasound follow-up also recommended.
== END 2024-08-29 11:22 | disposition home or self-care (01) ==
PROVIDERS: PCP Family Medicine; Visit Provider Internal Medicine
DX: E04.2 Nontoxic multinodular goiter (principal)
CPT/HCPCS: 76536

== ENCOUNTER 2024-08-30 11:37 | Outpatient (CLI) | payer MEDICARE, MEDICAID, SELFPAY ==
--- NOTE | 2024-08-30 11:45 | MR_ITS ---
WS: [email or web address] MRA CAROTID ARTERIES HISTORY: G44.53 - Primary thunderclap headache COMPARISON: None available. TECHNIQUE: MRA is performed with intravenous gadolinium. MIP and source images are reviewed. Right: Normal common carotid artery. Internal and external carotid arteries are patent. No stenosis. Left: Normal common carotid artery. Internal and external carotid arteries are patent without stenosi s. Subclavian Arteries: Normal caliber. Vertebral Arteries: Dominant RIGHT vertebral artery. Small caliber LEFT vertebral artery but it is pa tent. Distal MR/MR angio neck w con* [id number] IMPRESSION: 1. No significant cervical carotid artery stenosis. 2. Small caliber but patent LEFT vertebral artery. Dominant RIGHT vertebral ar luis.
[2024-08-30] MEDS: gadobenate dimeglumine 20 mL vial IV (13:15)
== END 2024-08-30 11:38 | disposition home or self-care (01) ==
LOC: RAD 11:37
PROVIDERS: PCP Family Medicine; Visit Provider Psychiatry & Neurology Neurology
DX: M19.042 Primary osteoarthritis, left hand (principal); G44.53 Primary thunderclap headache; R29.818 Other symptoms and signs involving the nervous system; R47.89 Other speech disturbances; M54.2 Cervicalgia; R42 Dizziness and giddiness; R20.2 Paresthesia of skin; M79.601 Pain in right arm; R29.898 Other symptoms and signs involving the musculoskeletal system; G56.03 Carpal tunnel syndrome, bilateral upper limbs; G56.23 Lesion of ulnar nerve, bilateral upper limbs; M79.641 Pain in right hand; M79.642 Pain in left hand
CPT/HCPCS: 70548; 73130; 99205; A9577

== ENCOUNTER 2024-10-04 14:04 | Outpatient (CLI) | payer MEDICARE, MEDICAID, SELFPAY ==
[2024-10-04 14:46] LABS: Alanine Aminotransferase 18 U/L (0-33); Albumin Level 4.5 g/dL (3.5-5.2); Alkaline Phosphatase 98 U/L (35-105); Anion Gap 14.2 (5-19); Aspartate Amino Transferase 21 U/L (0-32); Blood Urea Nitrogen 16 mg/dL (8-23); Calcium 9.6 mg/dL (8.5-10.5); Carbon Dioxide 27 mmol/L (22-29); Chloride 103 mmol/L (98-107); Chol HDL Ratio 4.58 mg/dL (0.0-4.40); Cholesterol 197 mg/dL (0-200); Globulin 2.9 g/dL (1.3-4.6); Glomerular Filtration Rate 71.8 mL/min (90-130); Glucose 177 mg/dL (65-115); HDL Cholesterol 43 mg/dL (60-100); LDL Cholesterol Calculated 120 mg/dL (50-129); LDL HDL Ratio 2.79 RATIO (0.00-3.22); Osmolality Calculated 296 mOsm/kg (285-295); Potassium 4.2 mmol/L (3.5-5.1); Sodium 140 mmol/L (136-145); Total Bilirubin 0.4 mg/dL (0.15-1.2); Total Protein 7.4 g/dL (6.6-8.7); Triglycerides 169 mg/dL (0-150)
[2024-10-04 14:49] LABS: Creatinine Urine, Random 130 mg/dL (28-217); Microalbum Creatinine Ratio Ur 8 mg/dL (0-20); Microalbumin Random Urine 1 ug/dL (0-20)
[2024-10-04 14:49] LABS: Estmated Average Glucose 103; Hemoglobin A1C 5.2 % (4.0-6.0)
== END 2024-10-04 14:05 | disposition home or self-care (01) ==
LOC: LAB 14:05
PROVIDERS: PCP Family Medicine; Visit Provider Internal Medicine
DX: E11.9 Type 2 diabetes mellitus without complications (principal); E78.2 Mixed hyperlipidemia
CPT/HCPCS: 36415; 80053; 80061; 82044; 83036

== ENCOUNTER → 2024-10-12 09:45 | Outpatient (BNVA) | payer MEDICARE, MEDICAID, SELFPAY | PROVIDERS: PCP Family Medicine; Visit Provider Internal Medicine | DX: E11.9 Type 2 diabetes mellitus without complications (principal); E78.2 Mixed hyperlipidemia; E04.1 Nontoxic single thyroid nodule | CPT/HCPCS: 99214 ==

== ENCOUNTER 2024-10-13 12:31 | Outpatient (RCR) | payer MEDICARE, MEDICAID, SELFPAY | END 2024-11-07 23:59 | disposition home or self-care (01) | LOC: SPT 12:31 | PROVIDERS: PCP Family Medicine; Visit Provider Family Medicine | DX: M25.552 Pain in left hip (principal); M25.551 Pain in right hip; M25.562 Pain in left knee; M25.561 Pain in right knee | CPT/HCPCS: 97110; 97161 ==

== ENCOUNTER 2024-10-13 14:02 | Outpatient (CLI) | payer MEDICARE, MEDICAID, SELFPAY ==
--- NOTE | 2024-10-13 14:08 | XR_ITS ---
WS: [email or web address] XR knee RT 3V* [id number] REASON FOR EXAM: Right knee pain FINDINGS: Minimal narrowing of the medial knee joint space with minimal subchondral sclerosis and osteophytosis . Mild subchondral sclerosis. Minimal narrowing of the lateral knee joint space with mild subchondral sclerosis. Mild narrowing of the patellofemoral joint space with mild subchondral sclerosis and osteophytosis. XR/XR knee RT 3V* [id number] IMPRESSION: Mild osteoarthritis of the right knee.
--- NOTE | 2024-10-13 14:08 | XR_ITS ---
WS: [email or web address] XR hip BI 3-4V wo/[place] [id number] REASON FOR EXAM: Hip pain bilateral FINDINGS: RIGHT HIP: No fracture or focal bone lesion. Joint spaces are intact and relatively well preserved. No soft tissue abnormality. LEFT HIP: No fracture or focal bone lesion. Joint spaces are intact and relatively well preserved. No soft tissue abnormality. XR/XR hip BI 3-4V wo/w pel [id number] IMPRESSION: No significant arthropathic change in the hips bilaterally.
--- NOTE | 2024-10-13 14:08 | XR_ITS ---
WS: [email or web address] XR knee LT 3V* [id number] REASON FOR EXAM: Left knee pain FINDINGS: No fracture or focal bone lesion. Mild narrowing of the medial knee joint space with mild subchondral sclerosis and osteophytosis. Mild medial shift of the femur. Minimal narrowing of the lateral joint space. Mild narrowing of the patellofemoral joint space with mild subchondral sclerosis and osteophytosis of the patella. Mild opposing osteophytes of the femoral condyles. XR/XR knee LT 3V* [id number] IMPRESSION: Mild to moderate osteoarthritis of the left knee as above.
== END 2024-10-13 14:03 | disposition home or self-care (01) ==
LOC: RAD 14:05
PROVIDERS: PCP Family Medicine; Visit Provider Family Medicine
DX: M17.12 Unilateral primary osteoarthritis, left knee (principal); M25.762 Osteophyte, left knee; M25.561 Pain in right knee; M25.551 Pain in right hip; M25.552 Pain in left hip
CPT/HCPCS: 73522; 73562

== ENCOUNTER 2024-10-24 10:27 | Outpatient (CLI) | payer MEDICARE, MEDICAID, SELFPAY ==
--- NOTE | 2024-10-24 10:30 | MM_ITS ---
WS: [email or web address] Bilateral screening 3D tomosynthesis digital mammogram, 10/24/2024 10:34 AM Clinical Data: Screening Comparison: 08/12/2021, 08/30/2015, 07/19/2014, 11/23/2012, 09/25/2011, 09/23/2010, 09/13/2009, 8, 09/21/2007, 09/07/2006. 20 Findings: No spiculated masses or clustered calcifications are seen. There are no secondary signs of carcinoma . MM/MM scr tomosynthesis [id number] Impression: Negative bilateral mammogram unchanged. Recommend annual screening mammograms. BIRADS: 1 - Negative. FOLLOW UP: 1 Year Follow-up DENSITY: There are scattered areas of fibroglandular density. The CAD color checker roving or yarn was used
== END 2024-10-24 10:28 | disposition home or self-care (01) ==
PROVIDERS: PCP Family Medicine; Visit Provider Family Medicine
DX: Z12.31 Encounter for screening mammogram for malignant neoplasm of breast (principal)
CPT/HCPCS: 77063; 77067

== ENCOUNTER 2024-11-03 08:54 | Outpatient (CLI) | payer MEDICARE, MEDICAID, SELFPAY ==
--- NOTE | 2024-11-03 09:45 | US_ITS ---
WS: [email or web address] ULTRASOUND THYROID FNA CLINICAL INFORMATION: 2 thyroid nodules. Bilateral FNA requested TECHNIQUE: Ultrasound-guided FNA FINDINGS: Prior imaging was reviewed. Attention to the LEFT inferior thyroid nodule. Peripherally sandie cified RIGHT thyroid nodule also noted. The procedure including risks, benefits, and complications were discussed with the patient who agreed to proceed. Timeout was performed. Using sterile technique patient was prepped and draped in usual s terile fashion. After 1% lidocaine, using ultrasound guidance, a 25-gauge needle was advanced into th e LEFT thyroid nodule. 5 passes with pathology present for slide preparation. No immediate complicati ons. Next the peripherally calcified RIGHT thyroid nodule was localized. Patient was prepped and draped ne edle sterile fashion. After 1% lidocaine, using ultrasound guidance, 5 passes were made with a 25-gau ge needle. Pathology was present for slide preparation. Patient remained in the ultrasound suite 10 minutes postprocedure with intermittent ultrasound to ens ure no hematoma. No hematoma 10 minutes postprocedure. US/US biopsy/FNA thyroid [id number] IMPRESSION: Uncomplicated ultrasound-guided bilateral thyroid FNA Cytology is pending.
--- NOTE | 2024-11-03 10:30 | US_ITS ---
WS: [email or web address] ULTRASOUND THYROID FNA CLINICAL INFORMATION: 2 thyroid nodules. Bilateral FNA requested TECHNIQUE: Ultrasound-guided FNA FINDINGS: Prior imaging was reviewed. Attention to the LEFT inferior thyroid nodule. Peripherally sandie cified RIGHT thyroid nodule also noted. The procedure including risks, benefits, and complications were discussed with the patient who agreed to proceed. Timeout was performed. Using sterile technique patient was prepped and draped in usual s terile fashion. After 1% lidocaine, using ultrasound guidance, a 25-gauge needle was advanced into th e LEFT thyroid nodule. 5 passes with pathology present for slide preparation. No immediate complicati ons. Next the peripherally calcified RIGHT thyroid nodule was localized. Patient was prepped and draped ne edle sterile fashion. After 1% lidocaine, using ultrasound guidance, 5 passes were made with a 25-gau ge needle. Pathology was present for slide preparation. Patient remained in the ultrasound suite 10 minutes postprocedure with intermittent ultrasound to ens ure no hematoma. No hematoma 10 minutes postprocedure. US/US guide FNA 2nd lesion IMPRESSION: Uncomplicated ultrasound-guided bilateral thyroid FNA Cytology is pending.
== END 2024-11-03 08:55 | disposition home or self-care (01) ==
LOC: RAD 08:54
PROVIDERS: PCP Family Medicine; Visit Provider Internal Medicine
DX: E04.1 Nontoxic single thyroid nodule (principal)
CPT/HCPCS: 10005; 10006; 88173

== ENCOUNTER 2024-11-08 06:00 | Outpatient (RCR) | payer MEDICARE, MEDICAID, SELFPAY | END 2024-12-08 23:59 | disposition home or self-care (01) | LOC: SPT 06:00 | PROVIDERS: PCP Family Medicine; Visit Provider Family Medicine | DX: M25.552 Pain in left hip (principal); M25.551 Pain in right hip; M25.562 Pain in left knee; M25.561 Pain in right knee | CPT/HCPCS: 97110; 97112; 97164 ==

== ENCOUNTER → 2024-11-21 10:20 | Outpatient (BNVA) | payer MEDICARE, MEDICAID, SELFPAY | PROVIDERS: PCP Family Medicine; Visit Provider Anesthesiology Pain Medicine | DX: M54.9 Dorsalgia, unspecified (principal); M70.61 Trochanteric bursitis, right hip; M70.62 Trochanteric bursitis, left hip | CPT/HCPCS: 99214 ==

== ENCOUNTER → 2024-11-28 11:14 | Outpatient (BNVA) | payer MEDICARE, MEDICAID, SELFPAY | PROVIDERS: PCP Family Medicine; Visit Provider Podiatrist Foot & Ankle Surgery | DX: G62.9 Polyneuropathy, unspecified (principal); E11.42 Type 2 diabetes mellitus with diabetic polyneuropathy; B35.1 Tinea unguium; M19.072 Primary osteoarthritis, left ankle and foot; M79.672 Pain in left foot | CPT/HCPCS: 11721; 73630; 99213 ==

== ENCOUNTER → 2024-11-29 13:54 | Outpatient (BNVA) | payer MEDICARE, MEDICAID, SELFPAY | PROVIDERS: PCP Family Medicine; Visit Provider Psychiatry & Neurology Neurology | DX: G44.53 Primary thunderclap headache; R29.818 Other symptoms and signs involving the nervous system; R47.89 Other speech disturbances; M54.2 Cervicalgia; R42 Dizziness and giddiness; R20.2 Paresthesia of skin; M79.601 Pain in right arm; M79.602 Pain in left arm; R29.898 Other symptoms and signs involving the musculoskeletal system; M72.2 Plantar fascial fibromatosis; M21.6X1 Other acquired deformities of right foot; R29.90 Unspecified symptoms and signs involving the nervous system; M48.00 Spinal stenosis, site unspecified; M70.61 Trochanteric bursitis, right hip; M70.62 Trochanteric bursitis, left hip | CPT/HCPCS: 20610; 99212; 99213; J1010; J3490 ==

== ENCOUNTER → 2024-12-05 14:00 | Outpatient (BNVA) | payer MEDICARE, MEDICAID, SELFPAY | PROVIDERS: PCP Family Medicine; Referring Provider Specialist; Visit Provider Psychiatry & Neurology Neurology | DX: R29.898 Other symptoms and signs involving the musculoskeletal system (principal); R20.2 Paresthesia of skin; M79.601 Pain in right arm; M79.602 Pain in left arm; M54.2 Cervicalgia | CPT/HCPCS: 95885; 95913 ==

== ENCOUNTER 2024-12-09 06:00 | Outpatient (RCR) | payer MEDICARE, MEDICAID, SELFPAY | END 2025-01-05 23:59 | disposition home or self-care (01) | LOC: SPT 06:00 | PROVIDERS: PCP Family Medicine; Visit Provider Family Medicine | DX: M25.561 Pain in right knee (principal); M25.562 Pain in left knee; M25.552 Pain in left hip; M25.551 Pain in right hip | CPT/HCPCS: 97110; 97112 ==

== ENCOUNTER 2025-01-06 06:30 | Outpatient (RCR) | payer MEDICARE, MEDICAID, SELFPAY | END 2025-02-05 23:59 | disposition home or self-care (01) | LOC: SPT 06:30 | PROVIDERS: PCP Family Medicine; Visit Provider Family Medicine | DX: M25.552 Pain in left hip (principal); M25.551 Pain in right hip; M25.562 Pain in left knee; M25.561 Pain in right knee | CPT/HCPCS: 97110; 97164 ==

== ENCOUNTER → 2025-01-31 10:05 | Outpatient (BNVA) | payer MEDICARE, MEDICAID, SELFPAY | PROVIDERS: PCP Family Medicine; Visit Provider Podiatrist Foot & Ankle Surgery | DX: B35.1 Tinea unguium (principal); G62.9 Polyneuropathy, unspecified; M19.079 Primary osteoarthritis, unspecified ankle and foot; E11.42 Type 2 diabetes mellitus with diabetic polyneuropathy; M19.072 Primary osteoarthritis, left ankle and foot | CPT/HCPCS: 99213 ==

== ENCOUNTER 2025-02-06 05:00 | Outpatient (RCR) | payer MEDICARE, MEDICAID, SELFPAY | END 2025-02-16 08:26 | disposition home or self-care (01) | LOC: SPT 05:00 | PROVIDERS: PCP Family Medicine; Visit Provider Family Medicine | DX: M25.552 Pain in left hip (principal); M25.551 Pain in right hip; M25.562 Pain in left knee; M25.561 Pain in right knee | CPT/HCPCS: 97110; 97164 ==

== ENCOUNTER → 2025-02-22 10:07 | Outpatient (BNVA) | payer MEDICARE, MEDICAID, SELFPAY | PROVIDERS: PCP Family Medicine; Visit Provider Dermatology | DX: L70.0 Acne vulgaris (principal); L57.8 Other skin changes due to chronic exposure to nonionizing radiation; L81.4 Other melanin hyperpigmentation; Z08 Encounter for follow-up examination after completed treatment for malignant neoplasm; Z85.828 Personal history of other malignant neoplasm of skin; L57.0 Actinic keratosis | CPT/HCPCS: 17000; 99213 ==

== ENCOUNTER → 2025-03-05 13:22 | Outpatient (BNVA) | payer MEDICARE, MEDICAID, SELFPAY | PROVIDERS: PCP Family Medicine; Visit Provider Anesthesiology Pain Medicine | DX: M70.61 Trochanteric bursitis, right hip (principal); M70.62 Trochanteric bursitis, left hip; M54.9 Dorsalgia, unspecified | CPT/HCPCS: 99214 ==

== ENCOUNTER → 2025-03-14 14:09 | Outpatient (BNVA) | payer MEDICARE, MEDICAID, SELFPAY | PROVIDERS: PCP Family Medicine; Visit Provider Anesthesiology Pain Medicine | DX: M70.61 Trochanteric bursitis, right hip (principal); M70.62 Trochanteric bursitis, left hip | CPT/HCPCS: 20610; 99212; J1010; J3490 ==

== ENCOUNTER → 2025-03-21 10:02 | Outpatient (BNVA) | payer MEDICARE, MEDICAID, SELFPAY | PROVIDERS: PCP Family Medicine; Visit Provider Student in an Organized Health Care Education/Training Program | DX: G56.23 Lesion of ulnar nerve, bilateral upper limbs (principal); S69.92XA Unspecified injury of left wrist, hand and finger(s), initial encounter; X58.XXXA Exposure to other specified factors, initial encounter | CPT/HCPCS: 99203 ==

== ENCOUNTER 2025-04-06 10:43 | Outpatient (CLI) | payer MEDICARE, MEDICAID, SELFPAY ==
[2025-04-06 11:44] LABS: Alanine Aminotransferase 29 U/L (0-33); Albumin Level 4.1 g/dL (3.5-5.2); Alkaline Phosphatase 83 U/L (35-105); Aspartate Amino Transferase 25 U/L (0-32); Blood Urea Nitrogen 12 mg/dL (8-23); Calcium 9.3 mg/dL (8.5-10.5); Carbon Dioxide 26 mmol/L (22-29); Chloride 108 mmol/L (98-107); Chol HDL Ratio 4.04 mg/dL (0.0-4.40); Cholesterol 186 mg/dL (0-200); Creatinine Clr Calc Pharmacy 80.4613; Glomerular Filtration Rate 83.7 mL/min (90-130); Glucose 95 mg/dL (65-115); HDL Cholesterol 46 mg/dL (60-100); LDL Cholesterol Calculated 107 mg/dL (50-129); LDL HDL Ratio 2.33 RATIO (0.00-3.22); Osmolality Calculated 298 mOsm/kg (285-295); Sodium 144 mmol/L (136-145); Total Bilirubin 0.3 mg/dL (0.15-1.2); Total Protein 7.1 g/dL (6.6-8.7); Triglycerides 167 mg/dL (0-150)
[2025-04-06 11:49] LABS: Creatinine Urine, Random 147 mg/dL (28-217); Microalbum Creatinine Ratio Ur 7 mg/dL (0-20); Microalbumin Random Urine 1 ug/dL (0-20)
[2025-04-06 12:05] LABS: Estmated Average Glucose 108; Hemoglobin A1C 5.4 % (4.0-6.0)
--- NOTE | 2025-04-06 13:45 | MRR_ITS ---
PROCEDURE INFORMATION: Exam: MR Left Upper Extremity Joint Without Contrast; Wrist Exam date and time: 04/06/2025 1:53 PM Age: 64 years old Clinical indication: Left; States she heard a pop in her wrist opening a jar and has had pain since; Additional info: Left wrist injury/rule out tendon/ligament tear TECHNIQUE: Imaging protocol: Magnetic resonance imaging of the left upper extremity without contrast. Exam focused on the wrist. COMPARISON: CR XR hand LT min 3V* [id number] 08/30/2024 10:05 AM FINDINGS: Bones/joints: Alignment is normal. There is no bone marrow edema. Small distal radioulnar joint effusion. Articular cartilage is normal. There are a few scattered tiny subchondral cysts in the carpal bones. Scapholunate ligament: No sign of tear. Lunotriquetral ligament: No sign of tear. Triangular fibrocartilage complex: The triangular fibrocartilage complex is suboptimally evaluated in the absence of intra-articular contrast. The triangular fibrocartilage complex is irregular and ill-defined. Flexor compartment tendons: Unremarkable. No tear. Extensor compartment tendons: Unremarkable. No tear. Soft tissues: Visible soft tissues are unremarkable. MR/MR wrist LT wo con* [id number] IMPRESSION: 1. Possible tear of the triangular fibrocartilage complex. Limited evaluation in the absence of intra-articular contrast. Consider wrist arthrography for more complete evaluation if clinically indicated. Information regarding the location of wrist pain was not provided. 2. Distal radioulnar joint effusion.
== END 2025-04-06 10:44 | disposition home or self-care (01) ==
PROVIDERS: Internal Medicine; PCP Family Medicine; Visit Provider Student in an Organized Health Care Education/Training Program
DX: S69.92XA Unspecified injury of left wrist, hand and finger(s), initial encounter (principal); E11.9 Type 2 diabetes mellitus without complications; E78.2 Mixed hyperlipidemia; R93.6 Abnormal findings on diagnostic imaging of limbs; M25.432 Effusion, left wrist; M85.68 Other cyst of bone, other site; X58.XXXA Exposure to other specified factors, initial encounter
CPT/HCPCS: 36415; 73221; 80053; 80061; 82044; 83036

== ENCOUNTER → 2025-04-11 10:00 | Outpatient (BNVA) | payer MEDICARE, MEDICAID, SELFPAY | PROVIDERS: PCP Family Medicine; Visit Provider Internal Medicine | DX: E11.9 Type 2 diabetes mellitus without complications (principal); E04.1 Nontoxic single thyroid nodule; E78.2 Mixed hyperlipidemia | CPT/HCPCS: 99214 ==

== ENCOUNTER → 2025-04-18 09:46 | Outpatient (BNVA) | payer MEDICARE, MEDICAID, SELFPAY | PROVIDERS: PCP Family Medicine; Visit Provider Physician Assistant | DX: M25.561 Pain in right knee (principal); M25.562 Pain in left knee; M17.0 Bilateral primary osteoarthritis of knee | CPT/HCPCS: 20610; 73560; 73565; 99213; J3301; J9999 ==

== ENCOUNTER → 2025-05-08 14:19 | Outpatient (BNVA) | payer MEDICARE, MEDICAID, SELFPAY | PROVIDERS: PCP Family Medicine; Visit Provider Student in an Organized Health Care Education/Training Program | DX: M25.562 Pain in left knee (principal); S63.592A Other specified sprain of left wrist, initial encounter; M17.0 Bilateral primary osteoarthritis of knee; X58.XXXA Exposure to other specified factors, initial encounter | CPT/HCPCS: 20610; 99213; J3301; J9999 ==

== ENCOUNTER 2025-05-25 13:16 | Outpatient (CLI) | payer MEDICARE, MEDICAID, SELFPAY ==
--- NOTE | 2025-05-25 13:30 | USCV_ITS ---
Adriana Alex Age: 64 Gender: F : 1960 Exam Date: 05/25/2025 13:21 Ordering Phys: Arely Ridley Technologist: R [place] [facility] [place]: concern for DVT HISTORY: Lower extremity swelling. PROCEDURES: Venous duplex imaging was performed in only the right lower extremity. Serial compression, augmentation maneuvers, and spectral Doppler flow evaluation were performed. FINDINGS: superficial thrombus in varicose veins CONCLUSIONS No evidence of right lower extremity DVT. Superficial thrombus in varicose veins Right distal thigh area of concern Prelim report to provider by Coding File Clerk at time of study Grant Soto MD (Electronically Signed) Final Date: 25 May 2025 14:38 S
== END 2025-05-25 13:17 | disposition home or self-care (01) ==
LOC: RAD 13:17
PROVIDERS: PCP Family Medicine; Visit Provider Registered Nurse Neonatal Intensive Care
DX: I82.811 Embolism and thrombosis of superficial veins of right lower extremity (principal)
CPT/HCPCS: 93971

== ENCOUNTER 2025-05-31 16:11 | Outpatient (CLI) | payer MEDICARE, MEDICAID, SELFPAY ==
--- NOTE | 2025-05-31 16:30 | USCV_ITS ---
Adriana Alex Age: 64 Gender: F : 1960 Exam Date: 05/31/2025 16:27 Ordering Phys: Jorge Villarreal MD Technologist: USR Exam Location: [facility] – [place] Indication: worse swelling from superficial thombosis HISTORY: Lower extremity swelling. Lower extremity pain. PROCEDURES: Venous duplex imaging was performed in only the right lower extremity. FINDINGS: No evidence of DVT seen in any vessel visualized at this time. superficial thombus noted on 05/25 and today Comparison to 05/25/25 CONCLUSIONS No evidence of right lower extremity DVT. Area of interest in Right lateral calf demonstrates normal soft tissue. No varicosities in this area Medial distal thigh area of interest demonstrates persistent thrombosed tortous varicosities. No significant change. No other changes from previous Prelim report to physicans office by lumber cutter at time of study Grant Soto MD (Electronically Signed) Final Date: 31 May 2025 16:58 S
== END 2025-05-31 16:12 | disposition home or self-care (01) ==
LOC: RAD 16:13
PROVIDERS: PCP Family Medicine; Visit Provider Family Medicine
DX: M79.89 Other specified soft tissue disorders (principal); I83.811 Varicose veins of right lower extremity with pain
CPT/HCPCS: 93971

== ENCOUNTER → 2025-07-23 14:34 | Outpatient (BNVA) | payer MEDICARE, MEDICAID, SELFPAY | PROVIDERS: PCP Family Medicine; Visit Provider Anesthesiology Pain Medicine | DX: M70.61 Trochanteric bursitis, right hip (principal); M70.62 Trochanteric bursitis, left hip | CPT/HCPCS: 20610; 99213; J1010; J3490 ==

== ENCOUNTER → 2025-07-24 10:48 | Outpatient (BNVA) | payer MEDICARE, MEDICAID, SELFPAY | PROVIDERS: PCP Family Medicine; Visit Provider Student in an Organized Health Care Education/Training Program | DX: M17.0 Bilateral primary osteoarthritis of knee (principal) | CPT/HCPCS: 99213 ==

== ENCOUNTER → 2025-08-09 13:14 | Outpatient (BNVA) | payer MEDICARE, MEDICAID, SELFPAY | PROVIDERS: PCP Family Medicine; Visit Provider Family Medicine | DX: E55.9 Vitamin D deficiency, unspecified (principal); M62.838 Other muscle spasm; Z51.81 Encounter for therapeutic drug level monitoring; E03.9 Hypothyroidism, unspecified | CPT/HCPCS: 80053; 82306; 83735; 84443; 85025 ==

== ENCOUNTER → 2025-08-11 15:22 | Outpatient (BNVA) | payer MEDICARE, MEDICAID, SELFPAY | PROVIDERS: PCP Family Medicine; Visit Provider Emergency Medicine | DX: R39.9 Unspecified symptoms and signs involving the genitourinary system (principal) | CPT/HCPCS: 81000; 87086 ==

== ENCOUNTER 2025-09-19 10:39 | Outpatient (CLI) | payer OTHER, MEDICAID, SELFPAY ==
--- NOTE | 2025-09-19 10:30 | US_ITS ---
WS: [email or web address] THYROID ULTRASOUND HISTORY: Thyroid nodules. COMPARISON: 11/03/2024, 08/29/2024, 09/08/2023 Right lobe: 1.5 cm x 1.7 cm x 4.4 cm (w x ap x l). Volume: 5.3 cm3. Hypoechoic nodule with coarse calcifications involving the mid RIGHT thyroid. This nodule has undergone prior ultrasound-guided FNA. Very hypoechoic nodule with peripheral and central calcifications. Nodule measures 1.2 x 1.3 x 1.7 cm. Mild increased vascularity. Left lobe: 1.5 cm x 1.7 cm x 4.9 cm (w x ap x l). Volume: 6.1 cm3. Normal sized thyroid. There are several hypoechoic nodules. The largest has a large cystic component in the mid gland measuring 1.0 x 0.7 x 1.9 cm. Additional solid nodule in the inferior thyroid measures 1.5 x 1.4 x 2.5 cm. Biopsy was previously performed of this nodule. Isthmus: 0.3 cm. US/US thyroid [id number] IMPRESSION: 1. TI-RADS 5; nodule in the mid RIGHT thyroid. This nodule has undergone prior fine-needle aspiration but the ultrasound features are highly suspicious for m alignancy. Recommend surgical evaluation and excision. 2. TI-RADS 3; mildly suspicious nodule lower pole LEFT thyroid. This nodule darnell s been previously biopsied. Refer to that pathology report for further details.
== END 2025-09-19 10:40 | disposition home or self-care (01) ==
LOC: RAD 10:41
PROVIDERS: PCP Family Medicine; Visit Provider Internal Medicine
DX: E04.2 Nontoxic multinodular goiter (principal); E78.2 Mixed hyperlipidemia; E11.9 Type 2 diabetes mellitus without complications
CPT/HCPCS: 76536

== ENCOUNTER → 2025-10-24 13:32 | Outpatient (BNVA) | payer OTHER, MEDICAID, SELFPAY | PROVIDERS: PCP Family Medicine; Visit Provider Anesthesiology Pain Medicine | DX: M70.61 Trochanteric bursitis, right hip (principal); M70.62 Trochanteric bursitis, left hip | CPT/HCPCS: 20610; 99213; J1010; J3490 ==

== ENCOUNTER 2025-11-06 10:52 | Outpatient (CLI) | payer MEDICARE, MEDICAID, SELFPAY ==
--- NOTE | 2025-11-06 11:00 | MM_ITS ---
WS: [email or web address] BILATERAL 3D TOMOSYNTHESIS DIGITAL SCREENING MAMMOGRAPHY WITH CAD CLINICAL INFORMATION: Screening HISTORY: Screening mammogram. No current complaints. COMPARISON: 2023 TECHNIQUE: Bilateral CC and MLO views. FINDINGS: Scattered fibroglandular densities bilaterally. No suspicious focal mass, asymmetry, calcifications, or architectural distortion. No evidence of malignancy. Vascular calcifications. Stable clustered calcifications RIGHT breast MM/MM scr BI tomosynthesis [id number] IMPRESSION: DENSITY: There are scattered areas of fibroglandular density. BI-RADS: 2 - Benign. FOLLOW UP: 1 Year Follow-up Recommend return to annual screening mammography.
== END 2025-11-06 10:53 | disposition home or self-care (01) ==
LOC: RAD 10:53
PROVIDERS: PCP Family Medicine; Visit Provider Family Medicine
DX: Z12.39 Encounter for other screening for malignant neoplasm of breast (principal); E11.42 Type 2 diabetes mellitus with diabetic polyneuropathy; B35.1 Tinea unguium; G62.9 Polyneuropathy, unspecified; M19.072 Primary osteoarthritis, left ankle and foot; Z79.85 Long-term (current) use of injectable non-insulin antidiabetic drugs
CPT/HCPCS: 77063; 77067; 99213